=== PATIENT | female | born 1940 | race Caucasian/White ===

== ENCOUNTER → 2024-02-20 08:41 | Outpatient (REF) | payer OTHER, SELFPAY ==
[2024-02-20 09:36] LABS: % Basophils 0.7 % (0-2); % Immature Granulocytes 0.3 % (0-0.5); % Lymphocytes 22.1 % (20.5-51.1); % Monocytes 16.8 % (1.7-9.3); % Neutrophils 57.1 % (42.2-75.2); Absolute Eosinophils 0.1 10^3/uL (0-0.7); Absolute Lymphocytes 0.7 10^3/uL (1.2-3.4); Absolute Monocytes 0.5 10^3/uL (0.1-0.6); Absolute Neutrophils 1.7 10^3/uL (1.4-6.5); Hematocrit 31.8 % (37.0-47.0); Hemoglobin 10.4 g/dL (12.0-16.0); Mean Corp Hgb Conc. 32.7 g/dL (33.0-37.0); Mean Corpuscular Hgb 29.5 pg (27.0-31.0); Mean Corpuscular Volume 90.3 fL (81.0-99.0); Mean Platelet Volume 10.9 fL (7.4-10.4); Nucleated Red Blood Cells % 0 %; Platelet Count 121 10^3/uL (130-400); Red Blood Cell Count 3.52 10^6/uL (4.20-5.40); Red Cell Dist. Width 16.1 % (11.5-14.5)
[2024-02-20 10:03] LABS: ALT (SGPT) 20 U/L (0-35); AST (SGOT) 36 U/L (14-36); Albumin 3.1 g/dl (3.5-5.0); Alkaline Phosphatase 130 U/L (38-126); Blood Urea Nitrogen 20 mg/dl (7-17); Carbon Dioxide 27 mmol/L (22-30); Chloride 107 mmol/L (98-107); Glucose 121 mg/dl (70-99); HDL Cholesterol 57 mg/dl; LDL Cholesterol, Calculated 60 mg/dl; Sodium 137 mmol/L (135-145); Total Bilirubin 1.9 mg/dl (0.2-1.3); Total Cholesterol 131 mg/dl (50-199); Total Protein 7.1 g/dl (6.3-8.2); Triglyceride 74 mg/dl (10-149); Very Low Density Lipoprotein 14 mg/dl (0-30); eGFR > 60.00
[2024-02-20 10:10] LABS: Glycohemoglobin (HgbA1c) 7.4 % (4.0-5.6)
[2024-02-20 10:31] LABS: TSH Reflex To Free T4 3.23 uIU/ml (0.47-4.68)
== END ==
LOC: REG 08:41
PROVIDERS: ATTENDING PHYSICIAN Nurse Practitioner Family
DX: E11.69 Type 2 diabetes mellitus with other specified complication (principal); I85.00 Esophageal varices without bleeding; K76.6 Portal hypertension; K76.0 Fatty (change of) liver, not elsewhere classified; I86.4 Gastric varices; I10 Essential (primary) hypertension; H35.373 Puckering of macula, bilateral; H35.363 Drusen (degenerative) of macula, bilateral; H26.493 Other secondary cataract, bilateral; E78.2 Mixed hyperlipidemia; E66.09 Other obesity due to excess calories; Z68.34 Body mass index [BMI] 34.0-34.9, adult; I70.0 Atherosclerosis of aorta; L03.115 Cellulitis of right lower limb; S72.114S Nondisplaced fracture of greater trochanter of right femur, sequela; K21.9 Gastro-esophageal reflux disease without esophagitis; Z12.31 Encounter for screening mammogram for malignant neoplasm of breast; Z13.89 Encounter for screening for other disorder; R01.1 Cardiac murmur, unspecified; E66.9 Obesity, unspecified; Z99.89 Dependence on other enabling machines and devices; Z86.718 Personal history of other venous thrombosis and embolism; R60.0 Localized edema
CPT/HCPCS: 36415; 80053; 80061; 82306; 83036; 84443; 85025

== ENCOUNTER → 2024-06-11 16:35 | Outpatient (REF) | payer OTHER, SELFPAY | LOC: RAD 16:35 | PROVIDERS: ATTENDING PHYSICIAN Nurse Practitioner Family | DX: R60.0 Localized edema (principal) | CPT/HCPCS: 93970 ==

== ENCOUNTER → 2024-07-27 09:37 | Outpatient (REF) | payer OTHER, SELFPAY ==
[2024-07-27 10:41] LABS: % Basophils 0.6 % (0-2); % Eosinophils 3.1 % (0-6); % Immature Granulocytes 0.3 % (0-0.5); % Lymphocytes 14.6 % (20.5-51.1); % Monocytes 16.7 % (1.7-9.3); % Neutrophils 64.7 % (42.2-75.2); Absolute Eosinophils 0.1 10^3/uL (0-0.7); Absolute Lymphocytes 0.5 10^3/uL (1.2-3.4); Absolute Monocytes 0.5 10^3/uL (0.1-0.6); Absolute Neutrophils 2.1 10^3/uL (1.4-6.5); Hematocrit 28.8 % (37.0-47.0); Hemoglobin 9.6 g/dL (12.0-16.0); Mean Corp Hgb Conc. 33.3 g/dL (33.0-37.0); Mean Corpuscular Hgb 29.3 pg (27.0-31.0); Mean Corpuscular Volume 87.8 fL (81.0-99.0); Mean Platelet Volume 10.4 fL (7.4-10.4); Nucleated Red Blood Cells % 0 %; Platelet Count 92 10^3/uL (130-400); Red Blood Cell Count 3.28 10^6/uL (4.20-5.40); Red Cell Dist. Width 16.8 % (11.5-14.5); White Blood Cell Count 3.2 10^3/uL (4.8-10.8)
[2024-07-27 11:08] LABS: ALT (SGPT) 18 U/L (0-35); AST (SGOT) 33 U/L (14-36); Albumin 3.1 g/dl (3.5-5.0); Alkaline Phosphatase 113 U/L (38-126); Blood Urea Nitrogen 20 mg/dl (7-17); Calcium 8.6 mg/dl (8.4-10.2); Carbon Dioxide 26 mmol/L (22-30); Chloride 106 mmol/L (98-107); Glucose 121 mg/dl (70-99); Iron 60 ug/dl (37-170); Potassium 4.1 mmol/L (3.5-5.1); Sodium 139 mmol/L (135-145); Total Protein 6.9 g/dl (6.3-8.2); eGFR > 60.00
[2024-07-27 11:18] LABS: Percent Saturation 18 % (20-50); Total Iron Binding Capacity 324 ug/dl (265-497)
[2024-07-27 11:43] LABS: Ferritin 57.6 ng/ml (11.1-264.0)
[2024-07-27 11:57] LABS: Vitamin B12 890 pg/ml (239-931)
[2024-07-27 12:23] LABS: Glycohemoglobin (HgbA1c) 6.2 % (4.0-5.6)
[2024-07-27 16:00] LABS: Microalbumin, Random Urine > 57.0 mg/dl (0.6-1.7); Microalbumin/creatinine Ratio 350.6 mg/g
== END ==
LOC: REG 09:37
PROVIDERS: ATTENDING PHYSICIAN Internal Medicine
DX: E11.69 Type 2 diabetes mellitus with other specified complication (principal); D61.818 Other pancytopenia; I10 Essential (primary) hypertension; E78.2 Mixed hyperlipidemia; I85.00 Esophageal varices without bleeding; K76.0 Fatty (change of) liver, not elsewhere classified; D50.0 Iron deficiency anemia secondary to blood loss (chronic); I86.4 Gastric varices; K21.9 Gastro-esophageal reflux disease without esophagitis; E66.09 Other obesity due to excess calories; Z68.34 Body mass index [BMI] 34.0-34.9, adult; R01.1 Cardiac murmur, unspecified; Z99.89 Dependence on other enabling machines and devices; R60.0 Localized edema
CPT/HCPCS: 36415; 80053; 82043; 82570; 82607; 82728; 83036; 83540; 83550; 85025

== ENCOUNTER → 2024-08-21 08:44 | Outpatient (REF) | payer OTHER, SELFPAY | LOC: HWRAD 08:44 | PROVIDERS: ATTENDING PHYSICIAN Internal Medicine Gastroenterology; FAMILY PHYSICIAN Nurse Practitioner Primary Care | DX: K74.60 Unspecified cirrhosis of liver (principal) | CPT/HCPCS: 76700 ==

== ENCOUNTER → 2024-11-12 10:07 | Outpatient (REF) | payer OTHER, SELFPAY ==
[2024-11-12 11:10] LABS: % Basophils 0.6 % (0-2); % Eosinophils 3.9 % (0-6); % Immature Granulocytes 0.3 % (0-0.5); % Lymphocytes 19.3 % (20.5-51.1); % Monocytes 14.5 % (1.7-9.3); % Neutrophils 61.4 % (42.2-75.2); Absolute Eosinophils 0.1 10^3/uL (0-0.7); Absolute Lymphocytes 0.6 10^3/uL (1.2-3.4); Absolute Monocytes 0.5 10^3/uL (0.1-0.6); Absolute Neutrophils 1.9 10^3/uL (1.4-6.5); Hemoglobin 10.3 g/dL (12.0-16.0); Mean Corp Hgb Conc. 32.2 g/dL (33.0-37.0); Mean Corpuscular Hgb 28.7 pg (27.0-31.0); Mean Corpuscular Volume 89.1 fL (81.0-99.0); Mean Platelet Volume 11.1 fL (7.4-10.4); Nucleated Red Blood Cells % 0 %; Platelet Count 119 10^3/uL (130-400); Red Blood Cell Count 3.59 10^6/uL (4.20-5.40); Red Cell Dist. Width 16.1 % (11.5-14.5); White Blood Cell Count 3.1 10^3/uL (4.8-10.8)
[2024-11-12 11:46] LABS: ALT (SGPT) 27 U/L (0-35); AST (SGOT) 40 U/L (14-36); Albumin 2.9 g/dl (3.5-5.0); Alkaline Phosphatase 157 U/L (38-126); Blood Urea Nitrogen 18 mg/dl (7-17); Calcium 8.5 mg/dl (8.4-10.2); Carbon Dioxide 29 mmol/L (22-30); Chloride 107 mmol/L (98-107); Glucose 125 mg/dl (70-99); Sodium 141 mmol/L (135-145); Total Bilirubin 2.1 mg/dl (0.2-1.3); Uric Acid 5.3 mg/dl (2.5-6.2); eGFR > 60.00
[2024-11-12 12:33] LABS: Glycohemoglobin (HgbA1c) 6.8 % (4.0-5.6)
[2024-11-12 20:06] LABS: Hepatitis B Surface Antibody Negative
== END ==
LOC: REG 10:07
PROVIDERS: ATTENDING PHYSICIAN Nurse Practitioner Primary Care
DX: E11.9 Type 2 diabetes mellitus without complications (principal); K75.81 Nonalcoholic steatohepatitis (NASH); Z87.39 Personal history of other diseases of the musculoskeletal system and connective tissue
CPT/HCPCS: 36415; 80053; 83036; 84550; 85025; 86706

== ENCOUNTER 2024-11-19 12:18 | Emergency (ER) | payer OTHER, SELFPAY ==
[2024-11-19 12:27] VITALS: BP 214/90
[2024-11-19 13:42] VITALS: BP 218/74
[2024-11-19 13:43] VITALS: BMI 28.5
[2024-11-19 14:00] VITALS: BP 212/75
--- NOTE | 2024-11-19 14:20 | ED.GENMED ---
History of Present Illness
General
Chief Complaint: Blood Pressure Problem
Time Seen by Provider: 11/19/24 13:43
History of Present Illness
History of Present Illness:
84-year-old female presents to the emergency department for evaluation of elevated blood pressure. Patient was seen by her PCP last week for a routine physical where she was noted to be markedly hypertensive. She was previously taking 3.125 mg of
carvedilol and this was recommended to be doubled, following up today for blood pressure recheck and was noted to have systolic blood pressure greater than 200. She feels well, denies headache, vision changes, chest pain, shortness of breath. Her
PCP wrote orders for clonidine as well as losartan to be started as an outpatient.
Past History
Past History
ED Past Medical History: HTN, NIDDM and Other (Esophageal varices. Chronic anemia. Chronic thrombocytopenia)
ED Past Surgical History: Orthopedic
Social History
Tobacco: Non-smoker
Alcohol: Occasional
Drug: None
Personal: Single
Living: alone
Employment: Retired
Family History
Family History: Other (Noncontributory)
Review of Systems
Review of Systems
Allergies reviewed?: Yes
All Other Systems: ROS reviewed and negative except as documented in HPI and ROS
Phy Exam
Physical Exam
Physical Exam:
GEN: Well appearing, NAD, WDWN
HEENT: Oral mucosa moist, no scleral icterus
Cardiac: Regular rate and rhythm, systolic murmur heard throughout the precordium
Lung: No respiratory distress, no tachypnea, lungs clear to auscultation bilaterally
MSK: No gross deformity or injuries
Skin: Good color, no pallor or jaundice, no rashes
Neuro: AO x3, moves all extremities freely
Psych: Calm, cooperative
Course
Vital Signs
Initial and Last Documented VS:
Initial Vital Signs
Temp Pulse Resp BP Pulse Ox
97.4 F 72 18 214/90 99
11/19/24 12:27 11/19/24 12:27 11/19/24 12:27 11/19/24 12:27 11/19/24 12:27
Last Documented Vital Signs
Temp Pulse Resp BP Pulse Ox
97.4 F 64 13 212/75 98
11/19/24 12:27 11/19/24 14:15 11/19/24 14:15 11/19/24 14:00 11/19/24 14:15
MDM/Problems Addressed
MDM/Problems Addressed:
Patient appears clinically well and has no complaints. No indication for labs for asymptomatic hypertension. She will be started on clonidine and losartan per PCP recommendations, her systolic murmur is reportedly lifelong and does not need any
further workup
*Critical Care Note
Total Time (30-74mins, 75-104mins- exclusive of procedures): Not Applicable
ED Attending Note
-
Portions of this chart may have been created with voice recognition software.� Occasional wrong word or��sound alike� substitutions may have occurred due to the inherent limitations of voice recognition software.
Discharge Plan
Departure
Patient Disposition: Home (Routine Discharge)
Date of Disposition: 11/19/24
Time of Disposition: 14:21
Patient with high blood pressure during this ER visit?: No
Discharge Problem:
Asymptomatic hypertension
Instructions: High Blood Pressure (DC)
Prescriptions:
No Action
allopurinol 100 mg tablet
100 mg PO HS
simvastatin 20 mg tablet
20 mg PO QPM
Janumet 50-1,000 mg tablet
1 tab PO BID@0800,1700
ferrous sulfate 325 mg (65 mg iron) Tablet
325 mg PO DAILY
furosemide 40 mg tablet
40 mg PO BID
sennosides [senna] 8.6 mg Tablet
8.6 mg PO DAILY PRN (Reason: constipation)
potassium chloride 10 mEq capsule, extended release
10 meq PO BID
acetaminophen 325 mg Tablet
650 mg PO Q6H PRN (Reason: mild pain/fever>101)
magnesium hydroxide [Milk of Magnesia] 400 mg/5 mL Suspension
30 ml PO DAILY PRN (Reason: constipation)
bisacodyl [Dulcolax (bisacodyl)] 10 mg Suppository
10 mg IA DAILY PRN (Reason: constipation)
cholecalciferol (vitamin D3) [Vitamin D3] 25 mcg (1,000 unit) Tablet
50 mcg PO DAILY
Referrals:
Nell Harris CRNP [Family Provider] -
Activity Restrictions/Additional Instructions:
Start the losartan and clonidine as prescribed by your primary doctor
Interventions
Interventions:
*Risk Screen - Suicide Last Done: 11/19/24 12:27
*General Assessment Last Done: 11/19/24 12:27
*Neglect/Abuse Screening Last Done: 11/19/24 12:27
*Nursing Disposition Last Done: 11/19/24 14:36
ED- Cardiac Assessment Last Done: 11/19/24 13:43
ED- Neurological Assessment Last Done: 11/19/24 13:43
ED- Pulmonary Assessment Last Done: 11/19/24 13:43
Discharge Date and Time
Discharge Date/Time: 11/19/24 14:37
Print Language: BURUNDIAN
== END 2024-11-19 14:37 | disposition home or self-care (01) ==
LOC: EMR 12:18
PROVIDERS: EMERGENCY PHYSICIAN Emergency Medicine; FAMILY PHYSICIAN Nurse Practitioner Primary Care
DX: I10 Essential (primary) hypertension (principal); E11.9 Type 2 diabetes mellitus without complications; Z79.899 Other long term (current) drug therapy
CPT/HCPCS: 99282

== ENCOUNTER → 2024-11-27 08:47 | Outpatient (REF) | payer OTHER, SELFPAY ==
[2024-11-27 11:21] LABS: Hematocrit 30.1 % (37.0-47.0); Hemoglobin 9.9 g/dL (12.0-16.0); Mean Corp Hgb Conc. 32.9 g/dL (33.0-37.0); Mean Corpuscular Hgb 29.2 pg (27.0-31.0); Mean Corpuscular Volume 88.8 fL (81.0-99.0); Red Blood Cell Count 3.39 10^6/uL (4.20-5.40); White Blood Cell Count 2.7 10^3/uL (4.8-10.8)
[2024-11-27 11:22] LABS: % Basophils 0.8 % (0-2); % Lymphocytes 17.7 % (20.5-51.1); % Monocytes 12.5 % (1.7-9.3); Absolute Eosinophils 0.1 10^3/uL (0-0.7); Absolute Lymphocytes 0.5 10^3/uL (1.2-3.4); Absolute Monocytes 0.3 10^3/uL (0.1-0.6); Absolute Neutrophils 1.8 10^3/uL (1.4-6.5); Nucleated Red Blood Cells % 0 %
[2024-11-27 11:26] LABS: INR 1.18; PT 15.5 Sec (11.4-14.6)
[2024-11-27 11:27] LABS: APTT 33.3 Sec (23.4-35.0)
[2024-11-27 11:54] LABS: ALT (SGPT) 20 U/L (0-35); AST (SGOT) 33 U/L (14-36); Albumin 2.8 g/dl (3.5-5.0); Alkaline Phosphatase 122 U/L (38-126); Blood Urea Nitrogen 23 mg/dl (7-17); Calcium 8.3 mg/dl (8.4-10.2); Carbon Dioxide 28 mmol/L (22-30); Chloride 107 mmol/L (98-107); Glucose 129 mg/dl (70-99); HDL Cholesterol 54 mg/dl; LDL Cholesterol, Calculated 83 mg/dl; Potassium 4.6 mmol/L (3.5-5.1); Sodium 138 mmol/L (135-145); Total Bilirubin 1.6 mg/dl (0.2-1.3); Total Cholesterol 148 mg/dl (50-199); Total Protein 6.7 g/dl (6.3-8.2); Triglyceride 58 mg/dl (10-149); Very Low Density Lipoprotein 11 mg/dl (0-30); eGFR > 60.00
[2024-11-27 12:14] LABS: Vitamin D, 25-OH*** 42.4 ng/mL (30-80)
[2024-11-27 12:23] LABS: Erythrocyte Sed Rate 46 mm/hour (0-20)
[2024-11-27 12:28] LABS: TSH Reflex To Free T4 3.08 uIU/ml (0.47-4.68)
[2024-11-27 12:30] LABS: Mean Platelet Volume 11.3 fL (7.4-10.4); Platelet Count 85 10^3/uL (130-400)
[2024-11-29 21:44] LABS: Albumin 2.53 g/dL (3.75-5.01); Alpha 1 Globulin 0.32 g/dL (0.19-0.46); Alpha 2 Globulin 0.51 g/dL (0.48-1.05); SPEP IFE Reflex Not Done; Total Protein-Electrophoresis 6.6 g/dL (6.3-8.2)
== END ==
LOC: REG 08:47
PROVIDERS: ATTENDING PHYSICIAN Nurse Practitioner Family; FAMILY PHYSICIAN Nurse Practitioner Primary Care
DX: I10 Essential (primary) hypertension (principal); D61.818 Other pancytopenia; E11.9 Type 2 diabetes mellitus without complications; K75.81 Nonalcoholic steatohepatitis (NASH); K74.69 Other cirrhosis of liver; E03.8 Other specified hypothyroidism; E55.9 Vitamin D deficiency, unspecified
CPT/HCPCS: 36415; 80053; 80061; 82306; 84155; 84165; 84443; 85025; 85610; 85652; 85730; 86140

== ENCOUNTER → 2024-11-30 13:14 | Outpatient (REF) | payer OTHER, SELFPAY | LOC: RAD 13:14 | PROVIDERS: ATTENDING PHYSICIAN Nurse Practitioner Primary Care; FAMILY PHYSICIAN Nurse Practitioner Family | DX: K75.81 Nonalcoholic steatohepatitis (NASH) (principal); K74.69 Other cirrhosis of liver; R19.05 Periumbilic swelling, mass or lump; I10 Essential (primary) hypertension | CPT/HCPCS: 74177; 93005; Q9967 ==

== ENCOUNTER → 2024-12-12 09:32 | Outpatient (REF) | payer OTHER, SELFPAY | LOC: HWWDC 09:32 | PROVIDERS: ATTENDING PHYSICIAN Nurse Practitioner Primary Care | DX: Z12.31 Encounter for screening mammogram for malignant neoplasm of breast (principal) | CPT/HCPCS: 77063; 77067 ==

== ENCOUNTER → 2024-12-18 07:13 | Outpatient (REF) | payer OTHER, SELFPAY ==
[2024-12-18 07:33] VITALS: BP 162/50; BP_SYST 53
[2024-12-18 08:08] VITALS: BP 162/54; BP_SYST 53
[2024-12-18 08:14] VITALS: BP 162/54; BP_SYST 53
[2024-12-18 08:35] VITALS: BP 162/54
[2024-12-18 09:14] LABS: Body Fluid Albumin < 1.0 g/dl; Body Fluid LDH < 90 U/L; Body Fluid Protein < 2.0 g/dl
[2024-12-18 09:48] LABS: Body Fluid WBC 301 /CUMM
[2024-12-18 10:01] LABS: Body Fluid Second Tech RP
== END ==
LOC: RADI 07:13
PROVIDERS: ATTENDING PHYSICIAN Internal Medicine Gastroenterology
DX: R18.8 Other ascites (principal)
CPT/HCPCS: 88305; 49083; 82042; 83615; 84157; 87015; 87070; 87205; 88112; 89051

== ENCOUNTER → 2024-12-25 16:35 | Outpatient (REF) | payer OTHER, SELFPAY ==
[2024-12-25 17:18] LABS: Blood Urea Nitrogen 37 mg/dl (7-17); Carbon Dioxide 28 mmol/L (22-30); Chloride 103 mmol/L (98-107); Glucose 210 mg/dl (70-99); Iron 88 ug/dl (37-170); Magnesium 1.7 mg/dl (1.6-2.3); Potassium 4.5 mmol/L (3.5-5.1); Sodium 137 mmol/L (135-145); eGFR > 60.00
[2024-12-25 17:26] LABS: Percent Saturation 25 % (20-50); Total Iron Binding Capacity 346 ug/dl (265-497)
[2024-12-25 17:51] LABS: Ferritin 66.5 ng/ml (11.1-264.0)
== END ==
LOC: REG 16:35
PROVIDERS: ATTENDING PHYSICIAN Internal Medicine Gastroenterology; FAMILY PHYSICIAN Nurse Practitioner Primary Care
DX: R18.8 Other ascites (principal); I10 Essential (primary) hypertension; D61.818 Other pancytopenia; D50.8 Other iron deficiency anemias
CPT/HCPCS: 36415; 80048; 82088; 82728; 83540; 83550; 83735; 84244

== ENCOUNTER 2025-01-03 08:01 | Day surgery (SDC) | payer OTHER, SELFPAY ==
[2025-01-03 08:13] VITALS: BMI 24.7
[2025-01-03 08:28] VITALS: BMI 24.7
[2025-01-03 08:47] VITALS: BP 156/50
[2025-01-03 09:02] LABS: Glucose - Point of Care 162 mg/dl (70-99)
[2025-01-03 12:02] VITALS: BP 130/56
[2025-01-03 12:15] VITALS: BP 140/53
[2025-01-03 12:32] VITALS: BP 155/60
== END 2025-01-03 13:10 | disposition home or self-care (01) ==
LOC: GI 08:01
PROVIDERS: ATTENDING PHYSICIAN Internal Medicine Gastroenterology
DX: R93.3 Abnormal findings on diagnostic imaging of other parts of digestive tract (principal); K64.1 Second degree hemorrhoids; K55.20 Angiodysplasia of colon without hemorrhage; K63.5 Polyp of colon; K57.30 Diverticulosis of large intestine without perforation or abscess without bleeding
CPT/HCPCS: 45385; 45381; 45380; 45382; 88305; 82962

== ENCOUNTER → 2025-01-16 09:32 | Outpatient (REF) | payer OTHER, SELFPAY ==
[2025-01-16 10:53] LABS: % Basophils 0.6 % (0-2); % Eosinophils 3.9 % (0-6); % Immature Granulocytes 0.3 % (0-0.5); % Lymphocytes 17.7 % (20.5-51.1); % Monocytes 12.3 % (1.7-9.3); % Neutrophils 65.2 % (42.2-75.2); Absolute Eosinophils 0.1 10^3/uL (0-0.7); Absolute Lymphocytes 0.6 10^3/uL (1.2-3.4); Absolute Monocytes 0.4 10^3/uL (0.1-0.6); Absolute Neutrophils 2.2 10^3/uL (1.4-6.5); Hematocrit 32.9 % (37.0-47.0); Hemoglobin 11.1 g/dL (12.0-16.0); Mean Corp Hgb Conc. 33.7 g/dL (33.0-37.0); Mean Corpuscular Volume 88.9 fL (81.0-99.0); Nucleated Red Blood Cells % 0 %; Red Cell Dist. Width 17.5 % (11.5-14.5); White Blood Cell Count 3.3 10^3/uL (4.8-10.8)
[2025-01-16 11:45] LABS: ALT (SGPT) 20 U/L (0-35); AST (SGOT) 25 U/L (14-36); Albumin 3.9 g/dl (3.5-5.0); Alkaline Phosphatase 91 U/L (38-126); Blood Urea Nitrogen 55 mg/dl (7-17); Calcium 9.4 mg/dl (8.4-10.2); Carbon Dioxide 20 mmol/L (22-30); Chloride 110 mmol/L (98-107); Glucose 124 mg/dl (70-99); Potassium 5.3 mmol/L (3.5-5.1); Sodium 140 mmol/L (135-145); Total Bilirubin 1.5 mg/dl (0.2-1.3); Total Protein 8.2 g/dl (6.3-8.2)
[2025-01-16 11:59] LABS: Mean Platelet Volume 11.2 fL (7.4-10.4)
[2025-01-16 12:00] LABS: Acanthocytes 1+; Anisocytosis 1+; Hypochromasia 1+; Normal RBC Morphology No; Ovalocytes 1+; Platelet Count 67 10^3/uL (130-400); Polychromasia 1+
== END ==
LOC: REG 09:32
PROVIDERS: ATTENDING PHYSICIAN Nurse Practitioner Primary Care
DX: I10 Essential (primary) hypertension (principal); E11.9 Type 2 diabetes mellitus without complications
CPT/HCPCS: 36415; 80053; 85025

== ENCOUNTER → 2025-01-31 12:08 | Outpatient (REF) | payer OTHER, SELFPAY ==
[2025-01-31 14:01] LABS: Blood Urea Nitrogen 60 mg/dl (7-17); Calcium 9.6 mg/dl (8.4-10.2); Carbon Dioxide 19 mmol/L (22-30); Chloride 105 mmol/L (98-107); Glucose 256 mg/dl (70-99); Potassium 5.7 mmol/L (3.5-5.1); Sodium 135 mmol/L (135-145); eGFR 36.87
== END ==
LOC: REG 12:08
PROVIDERS: ATTENDING PHYSICIAN Nurse Practitioner Primary Care
DX: E87.5 Hyperkalemia (principal)
CPT/HCPCS: 36415; 80048

== ENCOUNTER → 2025-02-01 14:20 | Outpatient (REF) | payer OTHER, SELFPAY | LOC: HWRAD 14:20 | PROVIDERS: ATTENDING PHYSICIAN Nurse Practitioner Primary Care | DX: K74.69 Other cirrhosis of liver (principal); I81 Portal vein thrombosis; R19.06 Epigastric swelling, mass or lump | CPT/HCPCS: 76700; 93975 ==

== ENCOUNTER → 2025-02-04 14:16 | Outpatient (REF) | payer OTHER, SELFPAY ==
[2025-02-04 15:09] LABS: Blood Urea Nitrogen 53 mg/dl (7-17); Calcium 9.3 mg/dl (8.4-10.2); Carbon Dioxide 19 mmol/L (22-30); Chloride 106 mmol/L (98-107); Glucose 305 mg/dl (70-99); Potassium 5.5 mmol/L (3.5-5.1); Sodium 135 mmol/L (135-145); eGFR 44.36
== END ==
LOC: REG 14:16
PROVIDERS: ATTENDING PHYSICIAN Nurse Practitioner Primary Care
DX: R74.8 Abnormal levels of other serum enzymes (principal)
CPT/HCPCS: 36415; 80048

== ENCOUNTER 2025-02-06 06:17 | Day surgery (SDC) | payer OTHER, SELFPAY ==
[2025-02-06 10:35] LABS: Glucose - Point of Care 111 mg/dl (70-99)
[2025-02-06 10:36] VITALS: BP 165/49
[2025-02-06 10:38] VITALS: BMI 24.4
[2025-02-06 10:39] VITALS: BMI 24.4
[2025-02-06 11:54] VITALS: BP 129/53
[2025-02-06 12:00] VITALS: BP 122/53
[2025-02-06 12:16] VITALS: BP 145/52
== END 2025-02-06 12:51 | disposition home or self-care (01) ==
LOC: SDS 06:17
PROVIDERS: ATTENDING PHYSICIAN Internal Medicine Gastroenterology
DX: I85.00 Esophageal varices without bleeding (principal); K76.6 Portal hypertension; K26.9 Duodenal ulcer, unspecified as acute or chronic, without hemorrhage or perforation; K31.89 Other diseases of stomach and duodenum
CPT/HCPCS: 43235; 82962

== ENCOUNTER → 2025-02-08 15:10 | Outpatient (REF) | payer OTHER, SELFPAY ==
[2025-02-11 03:12] LABS: H. pylori Breath Test Negative (Negative)
== END ==
LOC: REG 15:10
PROVIDERS: ATTENDING PHYSICIAN Internal Medicine Gastroenterology; FAMILY PHYSICIAN Nurse Practitioner Primary Care
DX: K26.9 Duodenal ulcer, unspecified as acute or chronic, without hemorrhage or perforation (principal)
CPT/HCPCS: 36415; 83013

== ENCOUNTER → 2025-02-12 12:37 | Outpatient (REF) | payer OTHER, SELFPAY | LOC: HWRCS 12:37 | PROVIDERS: ATTENDING PHYSICIAN Nurse Practitioner Primary Care | DX: I35.0 Nonrheumatic aortic (valve) stenosis (principal); R19.06 Epigastric swelling, mass or lump | CPT/HCPCS: 93306 ==

== ENCOUNTER → 2025-02-13 12:26 | Outpatient (REF) | payer OTHER, SELFPAY ==
[2025-02-13 14:21] LABS: ALT (SGPT) 20 U/L (0-35); AST (SGOT) 26 U/L (14-36); Albumin 3.1 g/dl (3.5-5.0); Alkaline Phosphatase 79 U/L (38-126); Blood Urea Nitrogen 46 mg/dl (7-17); Calcium 8.8 mg/dl (8.4-10.2); Carbon Dioxide 19 mmol/L (22-30); Chloride 109 mmol/L (98-107); Glucose 250 mg/dl (70-99); Potassium 5.4 mmol/L (3.5-5.1); Sodium 135 mmol/L (135-145); Total Bilirubin 1.4 mg/dl (0.2-1.3); Total Protein 6.9 g/dl (6.3-8.2); eGFR 44.36
[2025-02-13 14:53] LABS: Glycohemoglobin (HgbA1c) 7.5 % (4.0-5.6)
[2025-02-13 16:28] LABS: Urine Albumin 2+ (Neg - Trace); Urine Bilirubin Negative (Negative); Urine Character Clear (Clear); Urine Color Yellow; Urine Glucose Negative (Negative); Urine Ketone Negative (Negative); Urine Leukocyte 3+ (Negative); Urine Nitrite Negative (Negative); Urine Occult Blood 3+ (Negative); Urine Urobilinogen Negative (Neg - 1+)
[2025-02-13 16:40] LABS: Urine Bacteria Many (Negative); Urine Red Blood Cell 0-2 /HPF (0-2); Urine White Cell 26-30 /HPF (0-5)
[2025-02-13 16:52] LABS: Microalbumin, Random Urine 13.3 mg/dl (0.6-1.7); Microalbumin/creatinine Ratio 129.8 mg/g
== END ==
LOC: REG 12:26
PROVIDERS: ATTENDING PHYSICIAN Nurse Practitioner Primary Care
DX: I10 Essential (primary) hypertension (principal); E11.9 Type 2 diabetes mellitus without complications
CPT/HCPCS: 36415; 80053; 81003; 81015; 82043; 82570; 83036

== ENCOUNTER → 2025-02-21 14:45 | Outpatient (REF) | payer OTHER, SELFPAY ==
[2025-02-21 15:42] LABS: Blood Urea Nitrogen 52 mg/dl (7-17); Calcium 9.2 mg/dl (8.4-10.2); Carbon Dioxide 21 mmol/L (22-30); Chloride 112 mmol/L (98-107); Glucose 247 mg/dl (70-99); Sodium 143 mmol/L (135-145); eGFR 44.36
== END ==
LOC: REG 14:45
PROVIDERS: ATTENDING PHYSICIAN Nurse Practitioner Primary Care
DX: I10 Essential (primary) hypertension (principal)
CPT/HCPCS: 36415; 80048

== ENCOUNTER 2025-03-08 10:43 | Emergency (ER) | payer OTHER, SELFPAY ==
[2025-03-08] VITALS (11 sets, daily range): BP systolic 60–173; BP diastolic 51–117
--- NOTE | 2025-03-08 12:21 | ED.GENMED ---
History of Present Illness
General
Chief Complaint: Weight Changes
Source: patient
Exam Limitations: none
Time Seen by Provider: 03/08/25 12:00
History of Present Illness
History of Present Illness:
84-year-old female with history of portal vein thrombosis esophageal varices and cirrhosis presents with abdominal distention and tightness. She states she gained 20 pounds overnight. She also notes leg swelling. She has been here in the past.
She has required paracentesis in the past. She denies fever. She denies shortness of breath. She also notes she is diffusely itchy
Past History
Past History
ED Past Medical History: HTN, NIDDM and Other (Esophageal varices. Chronic anemia. Chronic thrombocytopenia)
ED Past Surgical History: Orthopedic
Social History
Tobacco: Non-smoker
Alcohol: Occasional
Drug: None
Personal: Single
Living: alone
Employment: Retired
Family History
Family History: Other (Noncontributory)
Phy Exam
Physical Exam
Physical Exam:
General: Well-appearing female no acute respiratory distress
HEENT normocephalic atraumatic
Heart: Regular rate and rhythm holosystolic murmur noted
Lungs: Clear no wheeze
Abdomen distended slightly firm no guarding or rebound nontender
Extremities significant pitting edema bilateral lower extremities
Skin is warm no rash
Scores
Heart Failure Risk
Heart Failure Risk Score: Not Applicable
Course
Orders/Labs/Results
Orders:
Orders
03/08/25 12:08
Diphenhydramine [Benadryl] 25 mg IV NOW STA
03/08/25 12:18
Consult Interventional Radiology [IRAD CONSULT] Urgent
Consulting Provider: Ajit Fitzpatrick
Was physician already notified: Yes
Reason for Consult/Procedure: ascites
Acknowledgement that appropriate orders are entered: Yes
03/08/25 12:25
Complete Blood Count/With Diff Urgent
Comprehensive Metabolic Panel Urgent
PTT Urgent
Prothrombin Time Urgent
03/08/25 14:20
Body Fluid Cell Count Routine
What is the Body Fluid: peritoneal
Date Specimen was Collected: 03/08/25
Time Specimen was Collected: 14:18
Fluid Culture with Gram Stain Routine
EMILIA Source: Peritoneal Fluid
Specimen Description:
Date Specimen was Collected: 03/08/25
Time Specimen was Collected: 14:18
Abnormal Lab Results
03/08/25
12:25
WBC 4.0 L 10^3/uL
(4.8-10.8)
RBC 3.09 L 10^6/uL
(4.20-5.40)
Hgb 9.6 L g/dL
(12.0-16.0)
Hct 28.4 L %
(37.0-47.0)
MCH 31.1 H pg
(27.0-31.0)
RDW 18.9 H %
(11.5-14.5)
Plt Count 109 L 10^3/uL
(130-400)
MPV 11.1 H fL
(7.4-10.4)
Absolute Lymphs (auto) 0.6 L 10^3/uL
(1.2-3.4)
Lymphocytes % 15.3 L %
(20.5-51.1)
Monocytes % 14.8 H %
(1.7-9.3)
Eosinophils % 6.5 H %
(0-6)
PT 16.2 H Sec
(11.4-14.6)
Chloride 112 H mmol/L
(98-107)
Carbon Dioxide 19 L mmol/L
(22-30)
BUN 33 H mg/dl
(7-17)
Glucose 153 H mg/dl
(70-99)
Total Bilirubin 1.8 H mg/dl
(0.2-1.3)
Alkaline Phosphatase 127 H U/L
(38-126)
03/08/25 12:25
03/08/25 12:25
Vital Signs
Initial and Last Documented VS:
Initial Vital Signs
Temp Pulse Resp BP Pulse Ox
97.5 F 76 18 173/81 96
03/08/25 10:49 03/08/25 10:49 03/08/25 10:49 03/08/25 10:49 03/08/25 10:49
Last Documented Vital Signs
Temp Pulse Resp BP Pulse Ox
98.5 F 76 14 162/62 98
03/08/25 15:23 03/08/25 15:23 03/08/25 15:23 03/08/25 15:23 03/08/25 15:23
MDM/Problems Addressed
Differential Diagnosis Includes:
Weight gain overnight with abdominal distention and leg edema. History of cirrhosis, portal vein thrombosis and esophageal varices. Not anticoagulated. No significant respiratory distress but given significant distention on exam consulted
interventional radiology for paracentesis. Labs pending
*Critical Care Note
Total Time (30-74mins, 75-104mins- exclusive of procedures): Not Applicable
Update Note
Update Note:
Patient was able to be seen by interventional radiology as and had a paracentesis. Symptomatically she feels better on exam her abdomen is soft and nontender. No respiratory distress. No acute finding noted in workup otherwise. Stable for
discharge
ED Attending Note
-
Portions of this chart may have been created with voice recognition software.� Occasional wrong word or��sound alike� substitutions may have occurred due to the inherent limitations of voice recognition software.
Discharge Plan
Departure
Patient Disposition: Home (Routine Discharge)
Date of Disposition: 03/08/25
Time of Disposition: 15:29
Patient with high blood pressure during this ER visit?: No
Discharge Problem:
Ascites
Prescriptions:
No Action
allopurinol 100 mg tablet
100 mg PO HS
simvastatin 20 mg tablet
20 mg PO QPM
ferrous sulfate 325 mg (65 mg iron) Tablet
325 mg PO DAILY
potassium chloride 10 mEq capsule, extended release
10 meq PO BID
acetaminophen 325 mg Tablet
650 mg PO Q6H PRN (Reason: mild pain/fever>101)
multivitamin Tablet
1 tab PO DAILY
carvedilol 3.125 mg Tablet
3.125 mg PO DAILY
cranberry 450 mg Tablet
405 mg PO DAILY
clonidine HCl 0.1 mg Tablet
0.1 mg PO HS PRN (Reason: high blood pressure)
triamcinolone acetonide 0.1 % Cream
1 applic TOPICAL WEEKLY
zinc 50 mg Tablet
50 mg PO DAILY
pioglitazone 30 mg Tablet
30 mg PO DAILY
[place] 3 Capsule
1,000 mg PO DAILY
cholecalciferol (vitamin D3) [Vitamin D3] 25 mcg (1,000 unit) Tablet
25 mcg PO DAILY
amlodipine 5 mg Tablet
2.5 mg PO DAILY
furosemide 40 mg Tablet
40 mg PO DAILY
spironolactone 100 mg Tablet
25 mg PO DAILY
Referrals:
Nell Harris CRNP [Family Provider] -
Activity Restrictions/Additional Instructions:
Continue to follow-up with your GI team. Return here if needed otherwise
Interventions
Interventions:
*Risk Screen - Suicide Last Done: 03/08/25 10:49
*General Assessment Last Done: 03/08/25 10:49
*Neglect/Abuse Screening Last Done: 03/08/25 10:53
*ED- Fall Risk Assessment Last Done: 03/08/25 15:23
*ED COVID-19 Vaccine History Last Done: 03/08/25 10:49
Discharge Date and Time
Print Language: BENGALI
[2025-03-08] MEDS: BENADRYL 25 MG IV (12:32)
[2025-03-08 12:37] LABS: % Eosinophils 6.5 % (0-6); % Immature Granulocytes 0.5 % (0-0.5); % Lymphocytes 15.3 % (20.5-51.1); % Monocytes 14.8 % (1.7-9.3); % Neutrophils 61.9 % (42.2-75.2); Absolute Eosinophils 0.3 10^3/uL (0-0.7); Absolute Lymphocytes 0.6 10^3/uL (1.2-3.4); Absolute Monocytes 0.6 10^3/uL (0.1-0.6); Absolute Neutrophils 2.5 10^3/uL (1.4-6.5); Hematocrit 28.4 % (37.0-47.0); Hemoglobin 9.6 g/dL (12.0-16.0); Mean Corp Hgb Conc. 33.8 g/dL (33.0-37.0); Mean Corpuscular Hgb 31.1 pg (27.0-31.0); Mean Corpuscular Volume 91.9 fL (81.0-99.0); Mean Platelet Volume 11.1 fL (7.4-10.4); Nucleated Red Blood Cells % 0 %; Platelet Count 109 10^3/uL (130-400); Red Blood Cell Count 3.09 10^6/uL (4.20-5.40); Red Cell Dist. Width 18.9 % (11.5-14.5)
[2025-03-08 12:43] LABS: INR 1.27; PT 16.2 Sec (11.4-14.6)
[2025-03-08 12:44] LABS: APTT 32.2 Sec (23.4-35.0)
[2025-03-08 13:04] LABS: ALT (SGPT) 27 U/L (0-35); AST (SGOT) 36 U/L (14-36); Albumin 3.5 g/dl (3.5-5.0); Alkaline Phosphatase 127 U/L (38-126); Blood Urea Nitrogen 33 mg/dl (7-17); Carbon Dioxide 19 mmol/L (22-30); Chloride 112 mmol/L (98-107); Glucose 153 mg/dl (70-99); Potassium 4.6 mmol/L (3.5-5.1); Sodium 142 mmol/L (135-145); Total Bilirubin 1.8 mg/dl (0.2-1.3); Total Protein 7.4 g/dl (6.3-8.2); eGFR > 60.00
[2025-03-08 14:46] LABS: Body Fluid Mononuclear 93.8 %; Body Fluid Polymorphonuclear 6.2 %; Body Fluid WBC 112 /CUMM
[2025-03-08 14:47] LABS: Body Fluid Second Tech EM
== END 2025-03-08 17:15 | disposition home or self-care (01) ==
LOC: EMR 10:43
PROVIDERS: Physician Assistant; CONSULT PHYSICIAN Radiology Vascular & Interventional Radiology; EMERGENCY PHYSICIAN Emergency Medicine; FAMILY PHYSICIAN Nurse Practitioner Primary Care
DX: R18.8 Other ascites (principal); Z86.718 Personal history of other venous thrombosis and embolism; K74.60 Unspecified cirrhosis of liver
CPT/HCPCS: 99284; 96374; 49083; 80053; 85025; 85610; 85730; 87015; 87070; 87205; 89051

== ENCOUNTER 2025-03-12 23:02 | Inpatient (IN) | payer OTHER, SELFPAY ==
[2025-03-12 19:37] VITALS: BP 189/60
[2025-03-12 19:38] VITALS: BP 189/60
[2025-03-12 19:52] VITALS: BMI 30.2
[2025-03-12 20:00] LABS: % Basophils 0.8 % (0-2); % Eosinophils 5.5 % (0-6); % Immature Granulocytes 0.6 % (0-0.5); % Lymphocytes 14.1 % (20.5-51.1); % Monocytes 14.8 % (1.7-9.3); % Neutrophils 64.2 % (42.2-75.2); Absolute Eosinophils 0.3 10^3/uL (0-0.7); Absolute Lymphocytes 0.7 10^3/uL (1.2-3.4); Absolute Monocytes 0.7 10^3/uL (0.1-0.6); Absolute Neutrophils 3.1 10^3/uL (1.4-6.5); Hematocrit 28.5 % (37.0-47.0); Hemoglobin 9.5 g/dL (12.0-16.0); Mean Corp Hgb Conc. 33.3 g/dL (33.0-37.0); Mean Corpuscular Hgb 30.4 pg (27.0-31.0); Mean Corpuscular Volume 91.3 fL (81.0-99.0); Mean Platelet Volume 10.2 fL (7.4-10.4); Nucleated Red Blood Cells % 0 %; Platelet Count 115 10^3/uL (130-400); Red Blood Cell Count 3.12 10^6/uL (4.20-5.40); Red Cell Dist. Width 18.5 % (11.5-14.5); White Blood Cell Count 4.9 10^3/uL (4.8-10.8)
[2025-03-12 20:01] VITALS: BP 173/57
[2025-03-12 20:02] LABS: INR 1.34; PT 16.8 Sec (11.4-14.6)
[2025-03-12 20:03] LABS: APTT 32.9 Sec (23.4-35.0)
--- NOTE | 2025-03-12 20:04 | ED.GENMED ---
History of Present Illness
General
Chief Complaint: Rectal Bleeding
Time Seen by Provider: 03/12/25 19:47
History of Present Illness
History of Present Illness:
Patient is a 84-year-old woman with history of esophageal and gastric varices, cirrhosis presenting to the emergency department rectal bleeding. Patient has had her prior esophageal varices banded. She currently still has some varices that they
are just watching. She also has some gastric varices. She had a colonoscopy few months ago which showed some polyp. Patient states that today she went to the bathroom. She got up and noticed that there was significant amount of blood in the
toilet. She then called her daughter who is a doctor. She brought her in for further evaluation. Patient states that she has soaked 2 pads of bright red blood since then. The bleeding has slowed down so she came here. No clots. No
lightheadedness dizziness. No abdominal pain. No diarrhea.
Past History
Past History
ED Past Medical History: HTN, NIDDM and Other (Esophageal varices. Chronic anemia. Chronic thrombocytopenia)
ED Past Surgical History: Orthopedic
Social History
Tobacco: Non-smoker
Alcohol: Occasional
Drug: None
Personal: Single
Living: alone
Employment: Retired
Family History
Family History: Other (Noncontributory)
Phy Exam
Physical Exam
Physical Exam:
GENERAL: in no acute distress
HEENT: normocephalic, extraocular movements intact, moist oral mucosa
NECK: normal inspection
RESPIRATORY: no respiratory distress, clear to auscultation bilaterally
CARDIOVASCULAR: regular rate and rhythm
ABDOMEN/: soft, non-distended, non-tender to palpation, no rebound or guarding
Rectum: Chaperoned by JUAQUIN Pérez, dried blood on check, external hemorrhoids, no gross hemorrhage, small amount of stool in rectal vault was Hemoccult positive
EXTREMITIES: non-tender, no edema/swelling
NEUROLOGIC: awake and alert, moves all extremities
SKIN: warm
Course
Orders/Labs/Results
Orders:
Orders
03/12/25 19:44
Type+Screen Urgent
Complete Blood Count/With Diff Urgent
Comprehensive Metabolic Panel Urgent
PTT Urgent
Prothrombin Time Urgent
03/12/25 20:09
CT Abd/pelvis Angio W/wo Iv Urgent
Comment:
Reason For Exam: lower gi bleed
Abnormal Lab Results
03/12/25
19:44
RBC 3.12 L 10^6/uL
(4.20-5.40)
Hgb 9.5 L g/dL
(12.0-16.0)
Hct 28.5 L %
(37.0-47.0)
RDW 18.5 H %
(11.5-14.5)
Plt Count 115 L 10^3/uL
(130-400)
Absolute Lymphs (auto) 0.7 L 10^3/uL
(1.2-3.4)
Absolute Monos (auto) 0.7 H 10^3/uL
(0.1-0.6)
Immature Gran % 0.6 H %
(0-0.5)
Lymphocytes % 14.1 L %
(20.5-51.1)
Monocytes % 14.8 H %
(1.7-9.3)
PT 16.8 H Sec
(11.4-14.6)
Chloride 110 H mmol/L
(98-107)
Carbon Dioxide 19 L mmol/L
(22-30)
BUN 34 H mg/dl
(7-17)
Glucose 196 H mg/dl
(70-99)
Total Bilirubin 1.7 H mg/dl
(0.2-1.3)
Alkaline Phosphatase 132 H U/L
(38-126)
03/12/25 19:44
04/15/25 19:44
Vital Signs
Initial and Last Documented VS:
Initial Vital Signs
BP
189/60
03/12/25 19:37
Last Documented Vital Signs
Temp Pulse Resp BP Pulse Ox
98.7 F 78 16 166/70 97
03/12/25 19:38 03/12/25 21:15 03/12/25 21:15 03/12/25 21:13 03/12/25 21:15
MDM/Problems Addressed
Differential Diagnosis Includes:
Patient is a 84-year-old woman with history of prior esophageal varices gastric varices cirrhosis presenting to the emergency department with bright red blood per rectum. On arrival patient was actually hypertensive. Exam did show dried blood on
the donell but no gross obvious bleeding from the rectum. Concern for lower GI bleed. Considered brisk upper GI bleed given patient's varices however patient has no abdominal pain no history of melena and no hematemesis. History exam not
consistent with mesenteric ischemia. Will check blood work. I considered obtaining a CTA given the amount of bleeding the patient was describing however it has resolved so we will hold off on any additional imaging at this time. Patient advised
to notify us if the bleeding reoccurs as we will proceed with imaging at that time.
*Critical Care Note
Total Time (30-74mins, 75-104mins- exclusive of procedures): Not Applicable
Update Note
Update Note:
Hemoglobin 9.5 which is similar to a few days ago. Nursing notified as patient with bright red bleeding. Will proceed with CT angio.
CT scan per my interpretation with no active bleeding but there is significant amount of ascites. Per chart patient was here few days ago for paracentesis. Discussed with hospitalist who accepted patient to their service
ED Attending Note
-
Portions of this chart may have been created with voice recognition software.� Occasional wrong word or��sound alike� substitutions may have occurred due to the inherent limitations of voice recognition software.
Discharge Plan
Departure
Patient Disposition: Admit
Date of Disposition: 03/12/25
Time of Disposition: 21:32
Presentation/result/management discussed w/ accepting MD/DO: Hospitalist
Discharge Problem:
GI bleed
Prescriptions:
No Action
allopurinol 100 mg tablet
100 mg PO HS
simvastatin 20 mg tablet
20 mg PO QPM
ferrous sulfate 325 mg (65 mg iron) Tablet
325 mg PO DAILY
potassium chloride 10 mEq capsule, extended release
10 meq PO BID
acetaminophen 325 mg Tablet
650 mg PO Q6H PRN (Reason: mild pain/fever>101)
multivitamin Tablet
1 tab PO DAILY
carvedilol 3.125 mg Tablet
3.125 mg PO DAILY
cranberry 450 mg Tablet
405 mg PO DAILY
clonidine HCl 0.1 mg Tablet
0.1 mg PO HS PRN (Reason: high blood pressure)
triamcinolone acetonide 0.1 % Cream
1 applic TOPICAL WEEKLY
zinc 50 mg Tablet
50 mg PO DAILY
pioglitazone 30 mg Tablet
30 mg PO DAILY
[place] 3 Capsule
1,000 mg PO DAILY
cholecalciferol (vitamin D3) [Vitamin D3] 25 mcg (1,000 unit) Tablet
25 mcg PO DAILY
amlodipine 5 mg Tablet
2.5 mg PO DAILY
furosemide 40 mg Tablet
40 mg PO DAILY
spironolactone 100 mg Tablet
25 mg PO DAILY
Referrals:
Nell Harris CRNP [Family Provider] -
Interventions
Interventions:
*Risk Screen - Suicide Last Done: 03/12/25 19:38
*General Assessment Last Done: 03/12/25 19:38
*Neglect/Abuse Screening Last Done: 03/12/25 19:38
*ED- Fall Risk Assessment Last Done: 03/12/25 19:52
*ED COVID-19 Vaccine History Last Done: 03/12/25 19:38
OU-Nkjoor-Ikdtcffbug Assessment Last Done: 03/12/25 19:52
ED- Cardiac Assessment Last Done: 03/12/25 19:52
ED- Pulmonary Assessment Last Done: 03/12/25 19:52
Discharge Date and Time
Print Language: ICELANDIC
[2025-03-12 20:07] LABS: ALT (SGPT) 25 U/L (0-35); AST (SGOT) 32 U/L (14-36); Albumin 3.6 g/dl (3.5-5.0); Alkaline Phosphatase 132 U/L (38-126); Blood Urea Nitrogen 34 mg/dl (7-17); Calcium 8.9 mg/dl (8.4-10.2); Carbon Dioxide 19 mmol/L (22-30); Chloride 110 mmol/L (98-107); Estimated Creatinine Clearance 50 ml/min; Glucose 196 mg/dl (70-99); Potassium 4.1 mmol/L (3.5-5.1); Sodium 139 mmol/L (135-145); Total Bilirubin 1.7 mg/dl (0.2-1.3); Total Protein 7.8 g/dl (6.3-8.2); eGFR > 60.00
[2025-03-12 21:13] VITALS: BP 166/70
--- NOTE | 2025-03-12 21:57 | HPS.HSE ---
Family Physician
-
Family Physician: Nell Harris
Chief Complaint
-
rectal bleeding
History of Present Illness
Patient is a 84-year-old female with past medical history significant for essential hypertension, hyperlipidemia, diabetes mellitus, type II, GERD and iron deficiency anemia who presented to [facility] ED for evaluation of rectal bleeding. Patient reports
going to the bathroom this morning to urinate and she had a large amount of bright red blood from rectum in toilet and on floor. She reports that she had no associated symptoms. Denies abdominal pain, nausea, vomiting, constipation, diarrhea,
dizziness or palpitations. Patient reports soaking 2 large pads with bright red blood following morning episode. Patient was observed with bleeding by ED RN.
Medical History
Past Medical History
Past Medical History: Reports Other
Additional Past Medical History:
essential hypertension
hyperlipidemia
diabetes mellitus, type II
GERD
iron deficiency anemia
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
gout
nephrolithiasis
HOYT cirrhosis
Past Surgical History: Reports Other
Additional Past Surgical History:
Right Hip ORIF
Bladder Mesh
uterine mesh
Left Kidney Stone Extraction
Appendectomy
Hysterectomy
Tonsillectomy
Cataracts
IVC filter
Social History
Tobacco: Former Smoker (Quit in her 30s)
Alcohol: None
Family History
Family History: Not pertinent
Allergies / Home Medications
Allergies reflects when Allergies were last updated in [facility].
Home Medications with original date entered in [facility]
Allergy/Medication List:
Allergies
Allergy/AdvReac Type Severity Reaction Status Date / Time
Penicillins Allergy Hives Verified 03/12/25 19:37
Sulfa (Sulfonamide Allergy Swelling Verified 03/12/25 19:37
Antibiotics)
Home Medications
allopurinol 100 mg tablet 100 mg PO HS Gout 05/03/23
ferrous sulfate 325 mg (65 mg iron) tablet 325 mg PO DAILY Supplement 05/03/23
simvastatin 20 mg tablet 20 mg PO DAILY High Cholesterol 05/03/23
acetaminophen 325 mg tablet 650 mg PO Q6HPRN PRN mild pain/fever>101 06/20/23
carvedilol 3.125 mg tablet 3.125 mg PO DAILY 12/18/24
cholecalciferol (vitamin D3) 25 mcg (1,000 unit) tablet (Vitamin D3) 25 mcg PO DAILY 12/18/24
clonidine HCl 0.1 mg tablet 0.1 mg PO HSPRN PRN high blood pressure 12/18/24
cranberry fruit 450 mg tablet (cranberry) 450 mg PO DAILY 12/18/24
pioglitazone 30 mg tablet 30 mg PO DAILY 12/18/24
triamcinolone acetonide 0.1 % topical cream 1 applic topical DAILYPRN PRN leg itching 12/18/24
furosemide 40 mg tablet 40 mg PO DAILY 01/03/25
diphenhydramine HCl 25 mg capsule (Benadryl) 25 mg PO HSPRN PRN itching 03/12/25
omega-3 fatty acids-fish oil 684 mg-1,200 mg capsule,delayed release 1 cap PO DAILY 03/12/25
omeprazole 20 mg capsule,delayed release 20 mg PO DAILY 03/12/25
therapeutic multivitamin 1 tab PO DAILY 03/12/25
zinc sulfate 50 mg zinc (220 mg) tablet 50 mg PO DAILY 03/12/25
Review of Systems
-
History Source: Patient
Constitutional: Reports No Symptoms
EENT: Reports No Symptoms
Respiratory: Reports No Symptoms
Cardiac: Reports No Symptoms
Abdomen/GI: Reports Other (bright red blood from rectum )
: Reports No Symptoms
Musculoskeletal: Reports No Symptoms
Skin: Reports No Symptoms
Neurological: Reports No Symptoms
Endocrine: Reports No Symptoms
Hematologic/Lymphatic: Reports No Symptoms
Psych: Reports No Symptoms
Physical Exam
Vital Signs
Vital Signs
Temp Pulse Resp BP Pulse Ox
98.7 F 78 16 166/70 97
03/12/25 19:38 03/12/25 21:15 03/12/25 21:15 03/12/25 21:13 03/12/25 21:15
Physical Exam
General: Well Developed, Well Nourished, No Apparent Distress, Comfortable and Conversant
HEENT: NormoCephalic, Moist mucous membranes, Atraumatic, [place] Conjunctivae, Nose Appears Normal and Ears Appear Normal
Respiratory: Clear and Non Labored Respirations
Cardiac: S1/S2 and Regular Rhythm
GI: Soft, Non Tender and Normal Bowel Sounds
Rectal: Red, Hem Positive and Hemorrhoids
Genito-urinary: Deferred by me
Musculoskeletal: No Clubbing, No Cyanosis and No Edema
Skin: Warm and IV/Catheter Site
Neuro: Awake, Alert, AO x 3 and Nonfocal/grossly intact
Psych: Calm and Intact Judgment/Insight
Laboratory Results
-
03/12/25 19:44
03/12/25 19:44
Laboratory Results
PT 16.8 Sec (11.4-14.6) H 03/12/25 19:44
INR 1.34 03/12/25 19:44
APTT 32.9 Sec (23.4-35.0) 03/12/25 19:44
Total Bilirubin 1.7 mg/dl (0.2-1.3) H 03/12/25 19:44
AST 32 U/L (14-36) 03/12/25 19:44
ALT 25 U/L (0-35) 03/12/25 19:44
Alkaline Phosphatase 132 U/L (38-126) H 03/12/25 19:44
Data Reviewed
-
CT Scan: Report Reviewed by me (Abd/Pel: There is no evidence of active GI bleed. Colonic diverticulosis. Cirrhotic morphology with moderate volume ascites Near completely occluded proximal/mid portal vein with thrombus extending into the superior
mesenteric vein, similar to prior. There are findings of portal hypertension with )
Lab Data: Labs Reviewed by me (hgb 9.5, hct 28.5)
Impression/Plan
-
IMPRESSION/PLAN:
#GI bleed
hgb 9.5, hct 28.5
Abd/Pel CTA: There is no evidence of active GI bleed. Colonic diverticulosis.
Cirrhotic morphology with moderate volume ascites
Near completely occluded proximal/mid portal vein with thrombus extending into the superior mesenteric vein, similar to prior. There are findings of portal hypertension with splenomegaly
and numerous collateral vessels in the left hemiabdomen and pelvis.
Cholelithiasis.
Small left pleural effusion with adjacent atelectasis.
- Admit to telemetry
- Consult GI
- monitor h/h
- transfuse for hgb <7.0
- blood consent obtained
- IV Protonix daily
#essential hypertension
- continue carvedilol, clonidine and furosemide
#hyperlipidemia
- continue simvastatin
#diabetes mellitus, type II
- AccuCheck AC & HS
- SSI
- continue pioglitazone
#GERD
- continue omeprazole
#iron deficiency anemia
- continue ferrous sulfate
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
s/p banding
#gout
- continue allopurinol
#HOYT cirrhosis
s/p paracentesis 03/08/2025 with 1100 removed
#nephrolithiasis
Code status: full code
DVT prophylaxis: SCDs
[2025-03-12 22:00] VITALS: BP 160/61
--- NOTE | 2025-03-12 22:23 | W.PN.UPDATE ---
Update Note
Progress Note Update
This note serves as an addendum to the H&P by acute care occupational therapist JHOANA
HPI
84F HX HOYT cirrhosis , Portal HTN, splenomegaly, esoph varices s/p banding, gastric varices, IVC filter in place, extensive LLEX DVT ( Juky 2022) seen at ER:
- pw rectal bleeding
- HX prior esophageal varices banded
- currently still has some esophageal varices and gastric varices under survillence
- colonoscopy few months ago which showed some polyp.
- today she went to the bathroom noted significant amount of blood in the toilet.
- She then called her daughter who is a doctor and brought her in for further evaluation.
- Patient states that she has soaked 2 pads of bright red blood since then.
- The bleeding has slowed down so she came here.
ROS
No clots. No lightheadedness dizziness. No abdominal pain. No diarrhea.
Vital Signs
Temp Pulse Resp BP Pulse Ox
98.7 F 81 17 160/61 99
03/12/25 19:38 03/12/25 22:00 03/12/25 22:00 03/12/25 22:00 03/12/25 22:00
PE
Gen: NAD, cognitively intact
HEENT: anicteric , telangiectasis of cheeks
Neck: supple
Lungs: CTA
Cor: RRR
Abdomen: soft NT NG
RETAIL FIELD SUPERVISOR: AAO3
MS: no edema
Psych:appropriate
Labs
03/08/25 03/12/25
12:25 19:44
WBC 4.0 L 4.9
Hgb 9.6 L 9.5 L
Plt Count 109 L 115 L
INR 1.34
Potassium 4.6 4.1
Chloride 112 H 110 H
Carbon Dioxide 19 L 19 L
BUN 33 H 34 H
Creatinine 0.8 0.9
eGFR > 60.00 > 60.00
Total Bilirubin 1.8 [address] Abd/pelvis Angio W/wo Iv
- There is no evidence of active GI bleed. Colonic diverticulosis.
- Cirrhotic morphology with moderate volume ascites
- Near completely occluded proximal/mid portal vein with thrombus extending into the superior mesenteric vein, similar to prior.
- There are findings of portal hypertension with splenomegaly and numerous collateral vessels in the left hemiabdominal and pelvis.
- Cholelithiasis.
- Small left pleural effusion with adjacent atelectasis.
Last hospitalist admission: 06/20/2023 - 06/26/2023
DC Dxs:
1. Acute deep venous thrombosis to the left lower extremity.
2. Severe hepatic cirrhosis without evidence of hepatocellular carcinoma.
3. Severe portal hypertension with large esophageal varices.
4. Moderate splenomegaly secondary to portal hypertension.
5. IVC filter in place.
ASSESSMENT & PLAN
Acute painless rectal bleed DDX : LGIB DDX: Hemorrhoids, diverticulosis
Stable Hgb and hemodynamically stable
NEG CTA for active bleeding
HX HOYT cirrhosis with portal HTN, splenomegaly, Esopho varices s/p banding, gastric varices
Pancytopenia due to HOYT cirrhosis
- NPO except ice chips
- IV PPI daily
- Blood consented
- H & H
- GI consult
HX IVC filter insertion by IR June 23
HX provoked extensive Left Lower Extremity DVT ( 2022) following ollowing Right Hip ORIF on May 04
Hyperlipidemia
-Continue simvastatin
Diabetes Mellitus, Type II
-add ISS low
Gout
-Continue allopurinol
DVT Px: SCD
Full code
IP TLM
[2025-03-12 23:00] VITALS: BP 145/57
[2025-03-13] VITALS (8 sets, daily range): BP systolic 132–159; BP diastolic 47–66; BMI 30.2
[2025-03-13 00:58] LABS: Hematocrit 23.7 % (37.0-47.0); Hemoglobin 8.1 g/dL (12.0-16.0)
[2025-03-13 05:12] LABS: Hematocrit 24.7 % (37.0-47.0); Hemoglobin 8.2 g/dL (12.0-16.0); Mean Corp Hgb Conc. 33.2 g/dL (33.0-37.0); Mean Corpuscular Hgb 31.1 pg (27.0-31.0); Mean Corpuscular Volume 93.6 fL (81.0-99.0); Platelet Count 102 10^3/uL (130-400); Red Blood Cell Count 2.64 10^6/uL (4.20-5.40); Red Cell Dist. Width 18.6 % (11.5-14.5); White Blood Cell Count 3.7 10^3/uL (4.8-10.8)
--- NOTE | 2025-03-13 08:59 | CON.GI ---
Addendum entered and electronically signed by Melita Delgadillo MD 03/13/25 19:45:
I saw and examined the patient.
The ENTRY SPECIALIST's note was reviewed and I agree with the note.
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
III with poral HTN gastropathy on EGD 01/2025(no banding done and to review with hepatology prior to banding) duodenal erosions, ascites with prior paracentesis, chronic PVT, colon polyps, colonic angioectasias , hemorrhoids. cholelithiasis,
umbilical hernia, YOLANDA, gout, kidney stones, DVT not on anticoagulation presents with onset of rectal bleeding. In review with patient no prior bleeding. She reports large volume of blood at 7:45pm on 03/12 with sense of blood dripping out. She
states less blood overnight but still some dripping when getting up to bathroom. She denies any other GI complaints with dysphagia, GERD, nausea, vomiting, hematemesis, abdominal pain, diarrhea, constipation or prior bleeding. Last EGD/colon as
noted. CTA on admission without active GI bleeding, cirrhosis with moderate ascites. Near completely occluded proximal/mid portal vein with thrombus extending into the superior mesenteric vein, similar to prior. She also had ER visit for recent para
for 1100ml last week neg SBP. She also complaints of itching with recent eval with Dr. Faustin and addition of ? rudi per family. On admission hbg 9.5 with some drop to 8.2, platelets 115, INR 1.34, creat 0.9, bili 1.7, Ast 32, ALT 25, alk phos
132.
EGD: 02/06/25- Protano-- EGD grade III EV portal HTN gastropathy, multiple nodule in stomach, duodenal erosion- Repeat upper endoscopy recommended banding held til hepatology follow up,
colonoscopy 12/2024- Raj mike, : hemorrhoids, congested colon, 5 mm polyp distal AC HP, nodule TC,tattooed bx neg, 4 mm HP polyp recto sigmoid - bx ischemic injury, IH, few non bleeding colonic angioectasia, IH
-rectal bleeding . Possible differential-hemorrhoidal versus diverticular versus rectal varices etc. CTA- negative for active bleeding on admission
- Decompensated cirrhosis secondary to HOYT. MELD on admission 12. Follow-up with Dr. Garvin /Ramin
plan
Continue to trend H&H
Colorectal surgical eval for possible hemorrhoidal bleeding
Will advise continue follow-up with Dr. Garvin /Ramin for liver cirrhosis-need adjustment of diuretics after resolution of GI bleeding/arrangement of outpatient paracentesis on weekly basis
Clear liquid diet
Will follow
Original Note:
Consultation
-
Date/Time Consultation Requested: 03/13/25 0015
Date/Time Consultation Performed: 03/13/25 0900
Requesting Provider: MALOU Arora
Performing Provider: MALOU Gibbons, Melita Delgadillo MD
Reason for Consultation: GI bleed
Medical History
Chief Complaint / HPI
Chief Complaint: rectal bleeding
History of Present Illness:
The patient is an 83-year-old female with a past medical history significant, MASH cirrhosis(following in past with [facility] and recent seen by Ramin 03/12) history of esophageal varices on Coreg, hx prior banding and recent EGD
with noted as grade III with poral HTN gastropathy on EGD 01/2025(no banding done and to review with hepatology prior to banding) duodenal erosions, ascites with prior paracentesis, chronic PVT, colon polyps, colonic angioectasias , hemorrhoids.
cholelithiasis, umbilical hernia, YOLANDA, gout, kidney stones, DVT not on anticoagulation presents with onset of rectal bleeding. In review with patient no prior bleeding. She reports large volume of blood at 7:45pm on 03/12 with sense of blood
dripping out. She states less blood overnight but still some dripping when getting up to bathroom. She denies any other GI complaints with dysphagia, GERD, nausea, vomiting, hematemesis, abdominal pain, diarrhea, constipation or prior bleeding.
Last EGD/colon as noted. CTA on admission without active GI bleeding, cirrhosis with moderate ascites. Near completely occluded proximal/mid portal vein with thrombus extending into the superior mesenteric vein, similar to prior. She also had ER
visit for recent para for 1100ml last week neg SBP. She also complaints of itching with recent eval with Dr. Faustin and addition of ? rudi per family. On admission hbg 9.5 with some drop to 8.2, platelets 115, INR 1.34, creat 0.9, bili 1.7, Ast
32, ALT 25, alk phos 132.
EGD: 02/06/25- Protano-- EGD grade III EV portal HTN gastropathy, multiple nodule in stomach, duodenal erosion- Repeat upper endoscopy recommended banding held til hepatology follow up,
colonoscopy 12/2024- Raj mike, : hemorrhoids, congested colon, 5 mm polyp distal AC HP, nodule TC,tattooed bx neg, 4 mm HP polyp recto sigmoid - bx ischemic injury, IH, few non bleeding colonic angioectasia, IH
Past Medical History
Past Medical History: Cancer (basal cell CA, squamous cell CA ), Hypercholesterolemia, NIDDM and Other (HOYT cirrhosis with history of nonbleeding esophageal varices, YOLANDA, kidney stones, gout, obesity, colon polyps, DVT)
Past Surgical History: Appendectomy, Gynecological (Hysterectomy, uterine mesh), Orthopedic (Right hip surgery May 04, 2023), Tonsilectomy, Urological (Bladder mesh, kidney stone extraction) and Other (cataracts, mohns surgery, IVC filter , kidney
surgery )
Social History
Tobacco: Non-Smoker
Alcohol: Other (rare)
Drug: None
Living: Alone
Employment: Retired
Family History
Family History: Other (son with hx recent liver transplant with fatty liver, obesity, liver CA, grandson with crohns )
Allergies / Home Medications
Allergy/AdvReac Type Severity Reaction Status Date / Time
Penicillins Allergy Hives Verified 03/12/25 19:37
Sulfa (Sulfonamide Allergy Swelling Verified 03/12/25 19:37
Antibiotics)
�Medication �Instructions �Recorded
allopurinol 100 mg tablet 100 mg PO HS Gout 05/03/23
ferrous sulfate 325 mg (65 mg 325 mg PO DAILY Supplement 05/03/23
iron) tablet
simvastatin 20 mg tablet 20 mg PO DAILY High Cholesterol 05/03/23
acetaminophen 325 mg tablet 650 mg PO Q6HPRN PRN mild 06/20/23
pain/fever>101
carvedilol 3.125 mg tablet 3.125 mg PO DAILY 12/18/24
cholecalciferol (vitamin D3) 25 25 mcg PO DAILY 12/18/24
mcg (1,000 unit) tablet (Vitamin
D3)
clonidine HCl 0.1 mg tablet 0.1 mg PO HSPRN PRN high blood 12/18/24
pressure
cranberry fruit 450 mg tablet 450 mg PO DAILY 12/18/24
(cranberry)
pioglitazone 30 mg tablet 30 mg PO DAILY 12/18/24
triamcinolone acetonide 0.1 % 1 applic topical DAILYPRN PRN leg 12/18/24
topical cream itching
furosemide 40 mg tablet 40 mg PO DAILY 01/03/25
diphenhydramine HCl 25 mg capsule 25 mg PO HSPRN PRN itching 03/12/25
(Benadryl)
omega-3 fatty acids-fish oil 684 1 cap PO DAILY 03/12/25
mg-1,200 mg capsule,delayed release
omeprazole 20 mg capsule,delayed 20 mg PO DAILY 03/12/25
release
therapeutic multivitamin 1 tab PO DAILY 03/12/25
zinc sulfate 50 mg zinc (220 mg) 50 mg PO DAILY 03/12/25
tablet
Review of Systems
-
History Source: Patient and Family
Constitutional: Reports Weight Gain (with fluid )
EENT: Reports No Symptoms
Respiratory: Reports No Symptoms
Cardiac: Reports Other (LE swelling )
Abdomen/GI: Reports Bloody Stools and Other (abd distention wtih fluid )
: Reports No Symptoms
Musculoskeletal: Reports No Symptoms
Skin: Reports Itching
Neurological: Reports No Symptoms
Endocrine: Reports No Symptoms
Hematologic/Lymphatic: Reports Bleeding
Vital Signs
Temp Pulse Resp BP Pulse Ox
98.1 F 72 11 136/56 95
03/13/25 04:50 03/13/25 04:40 03/13/25 04:40 03/13/25 04:40 03/13/25 04:40
Physical Exam
Exam
General: Well Developed, Well Nourished and No Apparent Distress
HEENT: Normocephalic and Anicteric
Respiratory: Clear
Cardiac: Regular Rhythm
GI: Soft, Non Tender and Distended
Rectal: Hemorrhoids (large hemorrhoids vs prolapse with visible clot on area, formed pieces of brown stool in rectal vault )
Musculoskeletal: No Clubbing and No Cyanosis
Skin: Warm and Dry
Neuro: Awake, Alert and AO x 3
Psych: Calm
Results
WBC 3.7 10^3/uL (4.8-10.8) L 03/13/25 04:55
Hgb 8.2 g/dL (12.0-16.0) L 03/13/25 04:55
Hct 24.7 % (37.0-47.0) L 03/13/25 04:55
MCV 93.6 fL (81.0-99.0) 03/13/25 04:55
Plt Count 102 10^3/uL (130-400) L 03/13/25 04:55
Absolute Neuts (auto) 3.1 10^3/uL (1.4-6.5) 03/12/25 19:44
PT 16.8 Sec (11.4-14.6) H 03/12/25 19:44
INR 1.34 03/12/25 19:44
APTT 32.9 Sec (23.4-35.0) 03/12/25 19:44
Sodium 139 mmol/L (135-145) 03/12/25 19:44
Potassium 4.1 mmol/L (3.5-5.1) 03/12/25 19:44
Chloride 110 mmol/L (98-107) H 03/12/25 19:44
Carbon Dioxide 19 mmol/L (22-30) L 03/12/25 19:44
BUN 34 mg/dl (7-17) H 03/12/25 19:44
Creatinine 0.9 mg/dL (0.6-1.0) 03/12/25 19:44
Calcium 8.9 mg/dl (8.4-10.2) 03/12/25 19:44
Total Bilirubin 1.7 mg/dl (0.2-1.3) H 03/12/25 19:44
AST 32 U/L (14-36) 03/12/25 19:44
ALT 25 U/L (0-35) 03/12/25 19:44
Alkaline Phosphatase 132 U/L (38-126) H 03/12/25 19:44
Diagnostic Image Results:
03/12/25 CT angio
There is no evidence of active GI bleed. Colonic diverticulosis.
Cirrhotic morphology with moderate volume ascites
Near completely occluded proximal/mid portal vein with thrombus extending into the superior mesenteric vein, similar to prior. There are findings of portal hypertension with splenomegaly and numerous collateral vessels in the left hemiabdomen and
pelvis.
Cholelithiasis.
Small left pleural effusion with adjacent atelectasis.
03/08/25 para 1100 cc of clear yellow ascitic fluid was evacuated neg SBP
02/01/25 US Abd W Abd Doppler
1. Occlusive portal vein thrombosis. This appears progressed as compared with the previous CT examination.
2. Cirrhosis and splenomegaly related to portal hypertension. No abnormal focal hepatic lesion identified sonographically.
3. Cholelithiasis.
4. Left nephrolithiasis. Malrotation and scarring of the left kidney as seen on previous CT.
5. Small umbilical hernia which contained ascites on the previous CT is not identified on the current examination.
12/18/24 para 1350ml
11/30/24 CT Abd/pel W Iv And Oral Contr
IMPRESSION: Moderate left and small right pleural effusions. Progressed.
Moderate abdominopelvic ascites. Progressed.
Findings suggesting mild volume overload or third spacing. Progressed.
Partial portal vein and superior mesenteric vein thrombosis. New
Mild splenomegaly. Stable
Findings consistent with hepatic cirrhosis. Progressed.
Several large gallstones. Enlarged.
Moderate splenomegaly. Progressed.
Findings concerning for a mural mass of the transverse colon. Direct visualization or barium enema recommended when the patient is able. Comparison is difficult without oral contrast present previously
Diverticulosis. Stable
Prior GI Procedures:
EGD: 02/06/25- Protano-- EGD grade III EV portal HTN gastropathy, multiple nodule in stomach, duodenal erosions
- Repeat upper endoscopy at appointment to be
scheduled for surveillance.
Given NO history of GIB (was banded prophylactically
before for need for AC) and questionable history of
GOV with nodularity seen at [facility] and large EV with no
active bleeding, decision made to hold off on banding.
Will discuss with hepatology, patient before
proceeding with banding at another date. Pt on
carvedilol currently.
Plan for HP breath test for duodenal erosions and will
start omeprazole AFTER HP breath test short course
history of ascites.
Will reach out to hepatology Dr. Torres for appt.
Updated daughter.
EGD: 05/2023 protano - Grade III esophageal varices.
- Erythematous mucosa in the stomach.
- Gastric erosion with no bleeding and no stigmata of
recent bleeding.
- Type 1 gastroesophageal varices (GOV1, esophageal
varices which extend along the lesser curvature),
without bleeding.
- Congested duodenal mucosa.
- Normal second portion of the duodenum.
- No specimens collected.
EGD: 2019 Dr. Perez: Grade II esophageal varices, Z-line regular, 39 cm from the incisors.Chronic gastritis. Biopsied. Normal third portion of the duodenum. Biopsied. Path normal.
colonoscopy 12/2024- Raj mike, : - Hemorrhoids found on perianal exam.
- The examined portion of the ileum was normal.
- Congested mucosa in the entire examined colon.
- One 5 mm polyp in the distal ascending colon,
removed with a cold snare. Resected and retrieved.
- Subepithelial nodule in the transverse colon.
Biopsied. Tattooed.
- One 4 mm polyp at the recto-sigmoid colon, removed
with a cold snare. Resected and retrieved.
- Diverticulosis in the sigmoid colon and in the
descending colon.
- A few non-bleeding colonic angioectasias. Treated
with argon plasma coagulation (APC).
- Internal hemorrhoids.
Colonoscopy: 2019, Dr. Perez: diverticulosis otherwise normal
Assessment / Plan
-
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
with noted as grade III with poral HTN gastropathy on EGD 01/2025(no banding done and to review with hepatology prior to banding) duodenal erosions, ascites with prior paracentesis, chronic PVT, colon polyps, colonic angioectasias , hemorrhoids.
cholelithiasis, umbilical hernia, YOLANDA, gout, kidney stones, DVT not on anticoagulation presents with onset of rectal bleeding. In review with patient no prior bleeding. She reports large volume of blood at 7:45pm on 03/12 with sense of blood
dripping out. She states less blood overnight but still some dripping when getting up to bathroom. She denies any other GI complaints with dysphagia, GERD, nausea, vomiting, hematemesis, abdominal pain, diarrhea, constipation or prior bleeding.
Last EGD/colon as noted. CTA on admission without active GI bleeding, cirrhosis with moderate ascites. Near completely occluded proximal/mid portal vein with thrombus extending into the superior mesenteric vein, similar to prior. She also had ER
visit for recent para for 1100ml last week neg SBP. She also complaints of itching with recent eval with Dr. Faustin and addition of ? rudi per family. On admission hbg 9.5 with some drop to 8.2, platelets 115, INR 1.34, creat 0.9, bili 1.7, Ast
32, ALT 25, alk phos 132.
EGD: 02/06/25- Vadimano-- EGD grade III EV portal HTN gastropathy, multiple nodule in stomach, duodenal erosion- Repeat upper endoscopy recommended banding held til hepatology follow up,
colonoscopy 12/2024- Raj mike, : hemorrhoids, congested colon, 5 mm polyp distal AC HP, nodule TC,tattooed bx neg, 4 mm HP polyp recto sigmoid - bx ischemic injury, IH, few non bleeding colonic angioectasia, IH
-rectal bleeding concern for local source
-hx MASH cirrhosis
-hx grade III EV recent EGD no banding done
-portal gastropathy
-LE edema
-PVT
-colonic angioectasisas
-hemorrhoids
-mild coagulopathy
-thrombocytopenia
-itching
-anemia
-palp mass above umbilical area
other med problems:
NIDDM
-colon polyps
cholelithiasis
-umbilical hernia
renal stone with prior kidney surgery
-Skin CA
-DVT IVC filter
PLAN:
etiology of bleeding with concern for local source with formed stool in rectal vault and blood dripping out- hemorrhoid, prolapse vs rectal varices
currently stable with small amount of blood on rectal area on exam with brown stool in rectal vault
will have colorectal eval
NPO til colorectal eval -- ok for clears from GI standpoint
MELD 12 on admission
trend hgb and stool record
CTA neg
eval need for recurrent paracentesis -- may need weekly tap last completed last tuesday
cont coreg
cont PPI
cont lasix 40mg consider adding Aldactone
to start OP rudi for itching
OP follow up with Dr. Garvin and did telehealth with Dr. Faustin 03/12
updated daughter
-
-
Thank you for consultation and allowing me to participate in the patient's care. Please call the clinical implementation specialist GI physician during the after hours with any questions or concerns.
[2025-03-13] MEDS: NSS (PRESERVATIVE FREE) 10 ML IV (10:02)
[2025-03-13] MEDS: FEOSOL 325 MG PO (10:02)
[2025-03-13] MEDS: PROTONIX IV 40 MG IV (10:02)
[2025-03-13] MEDS: THERAGRAN 1 TABLET PO (10:02)
[2025-03-13] MEDS: VITAMIN D3 (cholecalciferol) 25 MCG PO (10:02)
[2025-03-13] MEDS: COREG 3.125 MG PO (10:03)
[2025-03-13] MEDS: LASIX 40 MG PO (10:03)
[2025-03-13] MEDS: LIPITOR 10 MG PO (10:03)
--- NOTE | 2025-03-13 10:50 | W.PN.HOSP.TC ---
Today's Communication/Plan
-
Keep NPO. Continue with IV fluids. Follow H&H. Await colorectal surgery input.
SBP prophylaxis per GI.
Assessment / Plan
Assessment / Plan
Acute painless rectal bleeding-hemodynamically stable. Drop in H&H since admission noted. Currently 8.2. No acute chest pain or shortness of breath. Aim to keep hemoglobin more than 7. Keep NPO. Discussed with GI team. Requesting a colorectal
surgery consult for possible hemorrhoids as etiology. Differential includes diverticulosis, colon angiectasia's, congestive colopathy-colonoscopy from December 2024 noted. Doubt a brisk bleeding from esophageal varices.
Follow H&H.
History of Tucker cirrhosis with decompensation. Currently without any clinical evidence of hepatic encephalopathy. Has moderate ascites, will consider to tap once GI bleeding issues are over. She recently had a therapeutic paracentesis. Continue
with Lasix once GI issues have settled. Will discuss with GI regarding role of ceftriaxone/SBP prophylaxis in the setting of lower GI bleed.
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
Esophageal varices status post prior banding.
Diabetes mellitus type 2-on Actos which I would hold. Continue with sliding scale insulin.
Hyperlipidemia-on statin
History of gout-on allopurinol
History of DVT s/p IVC filter. Not on anticoagulation because of bleeding risk
Full code
Discussed with GI this morning
Total time spent on today's encounter was 52 minutes which included time spent in counseling the patient/family regarding diagnosis and treatment plan as listed above, goals of care, and symptom management. Case was discussed with nursing staff,
specialists, and care coordinators/case management. All labs and imaging personally reviewed by me. Remainder the time spent in detailed review of previous records, lab data, imaging, and other medical provider documentation.
Anticipated Discharge: > 48 hours
Subjective/Interval History
-
Date of Service: March 13, 2025
Patient presented with painless rectal bleeding. No prior history of GI bleed.
No abdominal pain. No nausea vomiting. No fever or chills.
Denies dizziness. No shortness of breath or chest pain.
Objective Data
-
Labs:
Laboratory Results
03/13/25 03/13/25 03/13/25
00:27 04:55 12:19
WBC 3.7 L
Hgb 8.1 L 8.2 L Pending
Hct 23.7 L 24.7 L Pending
Plt Count 102 L
Vital Signs:
Vital Signs
Temp Pulse Resp BP Pulse Ox
98.1 F 69 12 140/54 95
03/13/25 09:09 03/13/25 09:09 03/13/25 09:09 03/13/25 09:09 03/13/25 04:40
Physical Exam
-
Respiratory: Clear to Auscultation
Cardiac: Regular Rhythm, S1/S2 and Murmur; Negative Tachycardic
GI: Soft, Nontender, Normal Bowel Sounds and Distended
Neuro: AO x 3; Negative Tremors
Psych: Calm; Negative Confused
Data Reviewed
-
Labs: Labs Reviewed by me
[2025-03-13 10:52] LABS: Glucose - Point of Care 121 mg/dl (70-99)
[2025-03-13] MEDS: ZINC 50 MG PO (10:52)
[2025-03-13] MEDS: ACTOS 30 MG PO (10:52)
[2025-03-13] MEDS: NSS 1000 IV (12:41)
[2025-03-13 13:01] LABS: Hemoglobin 8.6 g/dL (12.0-16.0)
--- NOTE | 2025-03-13 13:02 | CON.CRS ---
Consultation
-
Date/Time Consultation Requested: 03/13/25 @9:40
Date/Time Consultation Performed: 03/13/25 @11:00
Requesting Provider: MALOU Gibbons
Performing Provider: Jesus Manuel Grady MD
Reason for Consultation: Rectal bleeding
Medical History
-
Chief Complaint: Rectal bleeding
History of Present Illness:
84-year-old female with cirrhosis ([facility]) with known esophageal varices (history of banding), gastropathy, and ascites who presents with the acute onset of rectal bleeding that began last night. There was a lot of bright red blood per rectum when
she sat to urinate. The blood was seen on the floor. She denies any dizziness or rectal pain. The blood was not associated with her bowels and her bowels have been regular. She called her daughter who brought her to the ED. She has had another
episode of bleeding while sitting on the commode to urinate and recently a much smaller episode. Her last colonoscopy was on 01/03/2025 and multiple polyps were removed. There is also left-sided diverticular disease, a few localized angiectasias in
the left colon that were treated with argon beam, and hemorrhoids. She states she does not have a history of bleeding hemorrhoids. Her last paracentesis was last week.
While in the ED her vital signs are stable and she is not tachycardic. Her hemoglobin upon arrival was 9.5 g/dL which is essentially unchanged. A repeat hemoglobin is 8.2 g/dL. Her platelets are around 100,000 and her INR is 1.34 and APTT of 32.9.
A CT angio did not reveal any active bleeding. There continues to be findings consistent with cirrhosis and moderate ascites. There is a near completely occluded portal vein with thrombus extending into the superior mesenteric vein, similar to
prior. There are prominent collateral vessels in the pelvis and retroaortic left renal vein.
Past Medical History
Past Medical History: GERD, HTN, Hypercholesterolemia, NIDDM and Other (Iron deficiency anemia; cirrhosis with varices and ascites; gout; nephrolithiasis)
Past Surgical History: Appendectomy, Gynecological (Hysterectomy), Orthopedic (Right hip replacement), Tonsilectomy, Urological (Bladder sling and what sounds like a sacrocolpopexy; kidney stone extraction) and Other (IVC filter; cataracts)
Social History
Tobacco: Non-Smoker
Alcohol: None
Allergies / Home Medications
Allergy/AdvReac Type Severity Reaction Status Date / Time
Penicillins Allergy Hives Verified 03/12/25 19:37
Sulfa (Sulfonamide Allergy Swelling Verified 03/12/25 19:37
Antibiotics)
�Medication �Instructions �Recorded �Confirmed �Type
allopurinol 100 mg tablet 100 mg PO HS Gout 05/03/23 03/12/25 History
ferrous sulfate 325 mg (65 mg 325 mg PO DAILY Supplement 05/03/23 03/12/25 History
iron) tablet
simvastatin 20 mg tablet 20 mg PO DAILY High Cholesterol 05/03/23 03/12/25 History
acetaminophen 325 mg tablet 650 mg PO Q6HPRN PRN mild 06/20/23 03/12/25 History
pain/fever>101
carvedilol 3.125 mg tablet 3.125 mg PO DAILY 12/18/24 03/12/25 History
cholecalciferol (vitamin D3) 25 25 mcg PO DAILY 12/18/24 03/12/25 History
mcg (1,000 unit) tablet (Vitamin
D3)
clonidine HCl 0.1 mg tablet 0.1 mg PO HSPRN PRN high blood 12/18/24 03/12/25 History
pressure
cranberry fruit 450 mg tablet 450 mg PO DAILY 12/18/24 03/12/25 History
(cranberry)
pioglitazone 30 mg tablet 30 mg PO DAILY 12/18/24 03/12/25 History
triamcinolone acetonide 0.1 % 1 applic topical DAILYPRN PRN leg 12/18/24 03/12/25 History
topical cream itching
furosemide 40 mg tablet 40 mg PO DAILY 01/03/25 03/12/25 History
diphenhydramine HCl 25 mg capsule 25 mg PO HSPRN PRN itching 03/12/25 03/12/25 History
(Benadryl)
omega-3 fatty acids-fish oil 684 1 cap PO DAILY 03/12/25 03/12/25 History
mg-1,200 mg capsule,delayed release
omeprazole 20 mg capsule,delayed 20 mg PO DAILY 03/12/25 03/12/25 History
release
therapeutic multivitamin 1 tab PO DAILY 03/12/25 03/12/25 History
zinc sulfate 50 mg zinc (220 mg) 50 mg PO DAILY 03/12/25 03/12/25 History
tablet
Review of Systems
-
History Source: Patient
All other systems: Negative unless noted
A 10 point review of systems was completed, and was negative except as per HPI.
Physical Exam
Vital Signs
Temp 98.1 F 03/13/25 09:09
Pulse 69 03/13/25 09:09
Resp Rate 12 03/13/25 09:09
Blood pressure 140/54 03/13/25 09:09
SaO2 95 03/13/25 04:40
03/12/25 03/13/25 03/14/25
06:59 06:59 06:59
Actual Weight 84.8 kg
Body Mass Index (BMI) 30.2
Lab Results / Allergies
03/13/25 12:40
03/12/25 19:44
WBC 3.7 10^3/uL (4.8-10.8) L 03/13/25 04:55
Hgb 8.6 g/dL (12.0-16.0) L 03/13/25 12:40
Hct 25.0 % (37.0-47.0) L 03/13/25 12:40
Plt Count 102 10^3/uL (130-400) L 03/13/25 04:55
Abs Immat Gran (auto) 0.0 10^3/uL (0-0.05) 03/12/25 19:44
Neutrophils % 64.2 % (42.2-75.2) 03/12/25 19:44
Allergy/AdvReac Type Severity Reaction Status Date / Time
Penicillins Allergy Hives Verified 03/12/25 19:37
Sulfa (Sulfonamide Allergy Swelling Verified 03/12/25 19:37
Antibiotics)
Physical Exam
General: Well Developed and Well Nourished
HEENT: Normocephalic and Anicteric
GI: Distended, Obese and Other (Reducible epigastric hernia. Caput medusa)
Rectal: Other (Enlarged external hemorrhoids circumferentially; the right anterior external hemorrhoid has some clot but there is no infection. ZHANG with formed stool and no blood.)
Neuro: Awake and Alert
Data Reviewed
-
CT Scan: Image Personally Visualized and interpreted, Report Reviewed by me, Discussed with Patient and Discussed with Family
Labs: Labs Reviewed by me, Discussed with Patient and Discussed with Family
Assessment / Plan
-
Rectal bleeding in a patient with cirrhosis and portal hypertension.
I reviewed the possible sources of the bleeding, i.e. a hemorrhoid (external versus internal), rectal varices, or more proximal source. Given the findings on exam and her clinical history, I suspect it is from the external hemorrhoid.
There is no active bleeding at the present time and I recommend expectant management. I explained there is risk to performing incision including worsening of the bleeding and infection. If the bleeding persists, I will recommend a flexible
sigmoidoscopy and if varices are present, sclerotherapy, events from the external hemorrhoid, I would consider placing a suture. The plan is for admission for observation for ongoing bleeding. There are no plans for intervention at this time. All
questions answered and she is in agreement with the plan.
I called and updated the patient's daughter.
[2025-03-13] MEDS: ZYLOPRIM 100 MG PO (21:39)
[2025-03-14 03:29] VITALS: BP 140/48
[2025-03-14 07:28] LABS: Glucose - Point of Care 107 mg/dl (70-99)
[2025-03-14 07:30] VITALS: BP 159/51
[2025-03-14 07:58] LABS: Hemoglobin 7.8 g/dL (12.0-16.0); Mean Corp Hgb Conc. 33.9 g/dL (33.0-37.0); Mean Corpuscular Volume 91.3 fL (81.0-99.0); Mean Platelet Volume 11.6 fL (7.4-10.4); Platelet Count 105 10^3/uL (130-400); Red Blood Cell Count 2.52 10^6/uL (4.20-5.40); Red Cell Dist. Width 18.6 % (11.5-14.5); White Blood Cell Count 4.4 10^3/uL (4.8-10.8)
[2025-03-14 08:09] LABS: INR 1.45; PT 18.1 Sec (11.4-14.6)
[2025-03-14 08:42] LABS: ALT (SGPT) 19 U/L (0-35); AST (SGOT) 28 U/L (14-36); Albumin 2.5 g/dl (3.5-5.0); Alkaline Phosphatase 98 U/L (38-126); Blood Urea Nitrogen 37 mg/dl (7-17); Calcium 8.4 mg/dl (8.4-10.2); Carbon Dioxide 20 mmol/L (22-30); Chloride 113 mmol/L (98-107); Estimated Creatinine Clearance 41 ml/min; Glucose 115 mg/dl (70-99); Potassium 3.7 mmol/L (3.5-5.1); Sodium 141 mmol/L (135-145); Total Bilirubin 1.6 mg/dl (0.2-1.3); Total Protein 5.9 g/dl (6.3-8.2); eGFR 49.24
[2025-03-14] MEDS: NSS 1000 IV (08:44)
[2025-03-14] MEDS: THERAGRAN 1 TABLET PO (08:45)
[2025-03-14] MEDS: LIPITOR 10 MG PO (08:46)
[2025-03-14] MEDS: VITAMIN D3 (cholecalciferol) 25 MCG PO (08:47)
[2025-03-14] MEDS: ACTOS 30 MG PO (08:47)
[2025-03-14] MEDS: ZINC 50 MG PO (08:47)
[2025-03-14] MEDS: COREG 3.125 MG PO (08:48)
[2025-03-14] MEDS: LASIX 40 MG PO (08:48)
[2025-03-14] MEDS: FEOSOL 325 MG PO (08:49)
[2025-03-14] MEDS: PROTONIX IV 40 MG IV (08:51)
[2025-03-14] MEDS: NSS (PRESERVATIVE FREE) 10 ML IV (08:52)
--- NOTE | 2025-03-14 09:14 | W.PN.CRS1 ---
Today's Communication / Plan
-
as below
Assessment/Plan
-
Rectal bleeding, most likely from the external hemorrhoid. History of cirrhosis and portal htn.
No signs of active bleeding.
Advance diet and monitor.
Ok for discharge if no further bleeding.
Subjective Data
Subjective Data
Date of Service: March 14, 2025
Small amount of bleeding overnight. Her stools are loose and she can't tell if the stools are bloody. She denies any pain.
Objective Data
-
Vital Signs
Temp Pulse Resp BP Pulse Ox
98.0 F 72 20 159/51 92
03/14/25 07:30 03/14/25 07:30 03/14/25 07:30 03/14/25 07:30 03/14/25 07:30
Intake & Output
03/13/25 03/14/25 03/15/25
06:59 06:59 06:59
Intake Total 600 / 600
Output Total 400 / 400
Balance 200 / 200
Intake:
Oral fluids 600 / 600
Output:
Urine, Voided 400 / 400
Other:
Number of unmeasured voidings 1
Number of approximated SMALL 2
amounts of urine
Number of approximated MODERATE 1 1
amounts of urine
How many times incontinent 1
SMALL amount urine
Lab Results
03/14/25 06:51
03/14/25 06:51
Physical Exam
-
General: No Acute Distress
Abdomen: Soft and Non Tender
Rectal: Other (small amount of clot in the right anterior hemorrhoid. No bleeding, nontender. )
--- NOTE | 2025-03-14 11:22 | CM ---
Addendum entered by Kayla Kwok 03/15/25 08:24:
Late entry from 03/14/25
Patient for discharge, confirms daughter will transport home. IMM signed in chart.
Original Note:
CM reviewed chart, patient seen bedside, initial assessment completed. Patient resides independently in a multiple story home, first floor set up, three steps to enter. Patient reports when her grandchildren are home from college they will stay on
the upper level. Patient reports her daughter and son in law are a good support. Patient reports having multiple railings, grab bars, walker and four canes at home. Patient reports she has had VN in the past, unsure with who, [facility] in past.
Patient confirms PCP Nell Harris, pharmacy [facility], confirms prescription coverage. Patient reports she is hopeful to d/c home, confirms she will have transportation. CM will continue to follow for all discharge planning needs.
Plan; home no needs anticipated.
[2025-03-14 11:53] VITALS: BP 129/90
[2025-03-14 12:13] LABS: Glucose - Point of Care 231 mg/dl (70-99)
[2025-03-14 14:00] VITALS: BP 145/51; BP_SYST 61
--- NOTE | 2025-03-14 14:15 | W.PN.HOSP.TC ---
Today's Communication/Plan
-
IR paracentesis
Advance diet
DC planning
Assessment / Plan
Assessment / Plan
Acute painless rectal bleeding-hemodynamically stable. Drop in H&H since admission noted. Currently 7.8 . Aim to keep >7.0. Appt GI and colorectal surgery input . Possible hemorrhoids vs other lower GI lesions. Differential includes
diverticulosis, colon angiectasia's, congestive colopathy-colonoscopy from December 2024 noted.
With no signs of active bleeding ,CRS holding on interventions and recommending medical tx.
Advance diet .
History of Tucker cirrhosis with decompensation. Currently without any clinical evidence of hepatic encephalopathy. Has moderate ascites, consider tap prior to dc as distension is worse. She recently had a therapeutic paracentesis. Continue with
Lasix . IR consulted for paracentesis by IR.
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
Esophageal varices status post prior banding.
Diabetes mellitus type 2-on Actos which I would hold. Continue with sliding scale insulin.
Hyperlipidemia-on statin
History of gout-on allopurinol
History of DVT s/p IVC filter. Not on anticoagulation because of bleeding risk
Full code
Advance diet and dc home if she tolerates it and once paracentesis is done
Anticipated Discharge: Today
Subjective/Interval History
-
Date of Service: March 14, 2025
Denies further rectal bleeding.
No abdo pain but feels abdo distension has increased.
No N/V
No fever or chills
Objective Data
-
Labs:
Laboratory Results
03/14/25
06:51
WBC 4.4 L
Hgb 7.8 L
Hct 23.0 L
Plt Count 105 L
PT 18.1 H
INR 1.45
Sodium 141
Potassium 3.7
Chloride 113 H
Carbon Dioxide 20 L
BUN 37 H
Creatinine 1.1 H
Glucose 115 H
Calcium 8.4
Total Bilirubin 1.6 H
AST 28
ALT 19
Alkaline Phosphatase 98
Vital Signs:
Vital Signs
Temp Pulse Resp BP Pulse Ox
97.9 F 60 20 129/90 97
03/14/25 11:53 03/14/25 11:53 03/14/25 11:53 03/14/25 11:53 03/14/25 11:53
I&O
03/13/25 03/14/25 03/15/25
06:59 06:59 06:59
Intake Total 600 / 600
Output Total 400 / 400
Balance 200 / 200
Review of Systems
-
Respiratory: Denies Trouble Breathing
Cardiac: Denies Chest Pain
Neuro: Denies Dizzy
Physical Exam
-
General: Comfortable
HEENT: Moist Mucous Membranes
Respiratory: Clear to Auscultation
Cardiac: Regular Rhythm and S1/S2
GI: Soft, Nontender, Normal Bowel Sounds and Distended
Neuro: AO x 3; Negative Tremors
Psych: Calm; Negative Confused
Data Reviewed
-
Labs: Labs Reviewed by me
[2025-03-14 14:50] VITALS: BP 134/49
--- NOTE | 2025-03-14 14:56 | W.PN.GI.CBS2 ---
Today's Communication / Plan
-
IR paracentesis
outpatient GI follow up
Assessment / Plan
-
The patient is an 83-year-old female with a past medical history significant, MASH cirrhosis(following in past with [facility] and recent seen by Ramin 03/12) history of esophageal varices on Coreg, hx prior banding and recent EGD
with noted as grade III with poral HTN gastropathy on EGD 01/2025(no banding done and to review with hepatology prior to banding) duodenal erosions, ascites with prior paracentesis, chronic PVT, colon polyps, colonic angioectasias , hemorrhoids.
cholelithiasis, umbilical hernia, YOLANDA, gout, kidney stones, DVT not on anticoagulation presents with onset of rectal bleeding. In review with patient no prior bleeding. She reports large volume of blood at 7:45pm on 03/12 with sense of blood
dripping out. She states less blood overnight but still some dripping when getting up to bathroom. She denies any other GI complaints with dysphagia, GERD, nausea, vomiting, hematemesis, abdominal pain, diarrhea, constipation or prior bleeding.
Last EGD/colon as noted. CTA on admission without active GI bleeding, cirrhosis with moderate ascites. Near completely occluded proximal/mid portal vein with thrombus extending into the superior mesenteric vein, similar to prior. She also had ER
visit for recent para for 1100ml last week neg SBP. She also complaints of itching with recent eval with Dr. Faustin and addition of ? rudi per family. On admission hbg 9.5 with some drop to 8.2, platelets 115, INR 1.34, creat 0.9, bili 1.7, Ast
32, ALT 25, alk phos 132.
EGD: 02/06/25- [facility]ano-- EGD grade III EV portal HTN gastropathy, multiple nodule in stomach, duodenal erosion- Repeat upper endoscopy recommended banding held til hepatology follow up,
colonoscopy 12/2024- Raj mike, : hemorrhoids, congested colon, 5 mm polyp distal AC HP, nodule TC,tattooed bx neg, 4 mm HP polyp recto sigmoid - bx ischemic injury, IH, few non bleeding colonic angioectasia, IH
-rectal bleeding concern for local source
-hx MASH cirrhosis
-hx grade III EV recent EGD no banding done
-portal gastropathy
-LE edema
-PVT
-colonic angioectasisas
-hemorrhoids
-mild coagulopathy
-thrombocytopenia
-itching
-anemia
-palp mass above umbilical area
other med problems:
NIDDM
-colon polyps
cholelithiasis
-umbilical hernia
renal stone with prior kidney surgery
-Skin CA
-DVT IVC filter
PLAN:
No further active rectal bleeding. Colorectal notes reviewed- likely hemorrhoids . Advance diet to 2 g sodium diet
Avoid constipation. Topical hemorrhoidal preparation as needed
Advised to use wet wipes to clean
Sitz bath as needed
Recommend paracentesis prior to discharge
Add spironolactone 25 mg to her current diuretic
Will recommend follow-up with Dr. Garvin /Ramin for decompensated liver cirrhosis.message sent to office
No further GI recommendation at this point. Plan discussed with hospitalist. /patient. Will sign off
Total Time Spent with Patient (in minutes): 35
Subjective
Subjective
Date of Service: March 14, 2025
No further gross rectal bleeding. Mostly brown stools.
Objective
Data Reviewed
Laboratory Data:
Laboratory Results
03/14/25 06:51
03/14/25 06:51
Laboratory Results
PT 18.1 Sec (11.4-14.6) H 03/14/25 06:51
INR 1.45 03/14/25 06:51
APTT 32.9 Sec (23.4-35.0) 03/12/25 19:44
Total Bilirubin 1.6 mg/dl (0.2-1.3) H 03/14/25 06:51
AST 28 U/L (14-36) 03/14/25 06:51
ALT 19 U/L (0-35) 03/14/25 06:51
Alkaline Phosphatase 98 U/L (38-126) 03/14/25 06:51
Vital Signs and I&O:
Vital Signs
Temp Pulse Resp BP Pulse Ox
97.9 F 60 20 129/90 97
03/14/25 11:53 03/14/25 11:53 03/14/25 11:53 03/14/25 11:53 03/14/25 11:53
I&O
03/13/25 03/14/25 03/15/25
06:59 06:59 06:59
Intake Total 600 / 600
Output Total 400 / 400
Balance 200 / 200
Physical Exam
Physical Exam
GI: Soft, Distended and Non Tender
[2025-03-14 15:00] VITALS: BP 123/49
[2025-03-14 15:44] LABS: Body Fluid Mononuclear 70.1 %; Body Fluid Polymorphonuclear 29.9 %; Body Fluid WBC 237 /CUMM
[2025-03-14 15:46] LABS: Body Fluid Albumin < 1.0 g/dl; Body Fluid Protein < 2.0 g/dl
--- NOTE | 2025-03-14 15:55 | W.DCSUMMARY ---
Discharge Summary
Discharge Data
Date of Admission: 03/12/25
Date of Discharge: 03/14/25
-
Pending Results: Yes (Culture from ascitic fluid)
Hospital Course
Primary diagnosis:
Rectal bleeding suspected hemorrhoidal
Secondary diagnosis:
MASH with cirrhosis
Decompensated liver disease with need for recurrent ascites paracentesis
History of portal vein thrombosis and superior vein thrombosis
Esophageal varices
Diabetes mellitus type 2
Hyperlipidemia
History of gout
Next history of DVT status post IVC filter
Hospital course:
84-year-old lady with a history of cirrhosis and decompensated liver disease with esophageal varices and ascites presented with acute onset of rectal bleeding. It was bright red per rectum. Blood was seen on the floor. Blood was not associated with
bowels. Bowels have been regular. While in ER ,She has had another episode of bleeding while sitting on the commode to urinate and recently a much smaller episode She had a colonoscopy in December 2024 which showed polyps were removed. There was
left-sided diverticular disease. There are also angiectasia's in the left colon treated with argon beam. Hemorrhoids were also noted then. No prior history of bleeding hemorrhoids.
She was hemodynamically stable. She had a CT of the abdomen pelvis which showed no active bleeding. There were finding consistent with cirrhosis and moderate ascites. She has completely occluded portal vein with thrombus extending into superior
mesenteric vein as before. She has prominent collateral vessels in the pelvis and the retroaortic left renal vein. Was not a candidate for anticoagulation because of cirrhosis.
Clinical exam by colorectal surgery-Enlarged external hemorrhoids circumferentially; the right anterior external hemorrhoid has some clot but there is no infection. ZHANG with formed stool and no blood.
She had no further bleeding in the hospital. Hemoglobin was 9.5 which dropped to 7.8. She has noted chronic anemia with hemoglobin around nines.
With suspected hemorrhoidal bleeding and her other associated condition colorectal surgery wanted to treated conservatively. Anusol as needed was recommended. She was tolerating a diet and she was discharged home.
She already had a buildup of ascites and it was getting more tense so a therapeutic paracentesis was arranged. No evidence of SBP. Final cultures pending. GI added spironolactone to her diuretic regimen on this admission.
Consultants on board:
Colorectal surgery-Amor Aguilar
GI-Berry Palacio
Discharge Plan
-
Patient Disposition: Home (Routine Discharge)
Discharge Diagnosis/Procedures: Rectal bleeding suspected hemorrhoidal;cirrhosis ;s/p ascitic tap on this admission
Diet: Diabetic, Carb Controlled
Activity: As tolerated
Driving Restrictions: As prior to admission
Bathing Restrictions: None
Blood Work: CBC and BMP blood work in one week -arrange through your PCP
Specialty Instructions: Weigh Daily- Call MD for wt gain/loss 3 lbs overnight/5 lbs in 1 week
Referrals:
Amor Grady MD [Active] - in two weeks
Nell Harris CRNP [Family Provider] - in less than 1 week
Kim Garvin MD [Active] - in two to four weeks
Prescriptions:
New
spironolactone [Aldactone] 25 mg tablet
25 mg PO DAILY Qty: 30 0RF
hydrocortisone acetate [Anusol-HC] 25 mg suppository
25 mg LA HS PRN (Reason: hemorrhoid) Qty: 12 0RF
Continued
allopurinol 100 mg tablet
100 mg PO HS
simvastatin 20 mg tablet
20 mg PO DAILY
ferrous sulfate 325 mg (65 mg iron) Tablet
325 mg PO DAILY
acetaminophen 325 mg Tablet
650 mg PO Q6HPRN PRN (Reason: mild pain/fever>101)
carvedilol 3.125 mg Tablet
3.125 mg PO DAILY
cranberry 450 mg Tablet
450 mg PO DAILY
clonidine HCl 0.1 mg Tablet
0.1 mg PO HSPRN PRN (Reason: high blood pressure)
triamcinolone acetonide 0.1 % Cream
1 applic TOPICAL DAILYPRN PRN (Reason: leg itching)
pioglitazone 30 mg Tablet
30 mg PO DAILY
cholecalciferol (vitamin D3) [Vitamin D3] 25 mcg (1,000 unit) Tablet
25 mcg PO DAILY
furosemide 40 mg Tablet
40 mg PO DAILY
therapeutic multivitamin Tablet
1 tab PO DAILY
zinc sulfate 50 mg zinc (220 mg) Tablet
50 mg PO DAILY
diphenhydramine HCl [Benadryl] 25 mg Capsule
25 mg PO HSPRN PRN (Reason: itching)
omeprazole 20 mg Capsule,Delayed Release(Dr/Ec)
20 mg PO DAILY
omega-3 fatty acids-fish oil 684-1,200 mg Capsule,Delayed Release(Dr/Ec)
1 cap PO DAILY
Discharge Orders:
Discharge Patient (As Directed); Ordered 03/14/25
Ordered By: Sundar López
Discharge Date and Time
Print Language: [id number]
[2025-03-14 16:15] LABS: Body Fluid Second Tech DW
== END 2025-03-14 17:16 | disposition home or self-care (01) | DRG 378 ==
LOC: 4 WEST ACU 23:02
PROVIDERS: Emergency Medicine; Nurse Practitioner Adult Health; Nurse Practitioner Family; Physician Assistant; Radiology Vascular & Interventional Radiology; ADMITTING PHYSICIAN Internal Medicine; ATTENDING PHYSICIAN Internal Medicine; CONSULT PHYSICIAN Internal Medicine Gastroenterology; CONSULT PHYSICIAN Surgery; EMERGENCY PHYSICIAN Student in an Organized Health Care Education/Training Program; FAMILY PHYSICIAN Nurse Practitioner Primary Care
PROC: 0W9G3ZZ Drainage of Peritoneal Cavity, Percutaneous Approach (ICD-10-PCS; 2025-03-14)
DX: K62.5 Hemorrhage of anus and rectum (principal); D61.818 Other pancytopenia; I85.10 Secondary esophageal varices without bleeding; K76.6 Portal hypertension; R18.8 Other ascites; K64.4 Residual hemorrhoidal skin tags; K64.8 Other hemorrhoids; K74.60 Unspecified cirrhosis of liver; I10 Essential (primary) hypertension; E11.9 Type 2 diabetes mellitus without complications; E66.9 Obesity, unspecified; Z68.30 Body mass index [BMI] 30.0-30.9, adult; Z86.718 Personal history of other venous thrombosis and embolism
CPT/HCPCS: 49083; 74174; 80053; 82042; 82962; 84157; 85014; 85018; 85025; 85027; 85610; 85730; 86850; 86900; 86901; 87015; 87070; 87205; 89051; Q9967

== ENCOUNTER → 2025-03-21 09:46 | Outpatient (REF) | payer OTHER, SELFPAY ==
[2025-03-21 10:37] LABS: Urine Albumin 2+ (Neg - Trace); Urine Bilirubin Negative (Negative); Urine Character Slightly Cloudy (Clear); Urine Color Yellow; Urine Glucose Negative (Negative); Urine Ketone Negative (Negative); Urine Leukocyte 3+ (Negative); Urine Nitrite Negative (Negative); Urine Occult Blood 3+ (Negative); Urine Urobilinogen Negative (Neg - 1+); Urine pH 6.5 (5.0-9.0)
[2025-03-21 10:49] LABS: % Basophils 0.6 % (0-2); % Immature Granulocytes 0.6 % (0-0.5); % Lymphocytes 12.4 % (20.5-51.1); % Monocytes 13.4 % (1.7-9.3); Absolute Eosinophils 0.5 10^3/uL (0-0.7); Absolute Lymphocytes 0.6 10^3/uL (1.2-3.4); Absolute Monocytes 0.7 10^3/uL (0.1-0.6); Absolute Neutrophils 3.2 10^3/uL (1.4-6.5); Hematocrit 24.7 % (37.0-47.0); Hemoglobin 8.6 g/dL (12.0-16.0); Mean Corp Hgb Conc. 34.8 g/dL (33.0-37.0); Mean Corpuscular Hgb 31.3 pg (27.0-31.0); Mean Corpuscular Volume 89.8 fL (81.0-99.0); Mean Platelet Volume 10.5 fL (7.4-10.4); Nucleated Red Blood Cells % 0 %; Platelet Count 119 10^3/uL (130-400); Red Blood Cell Count 2.75 10^6/uL (4.20-5.40); Red Cell Dist. Width 17.8 % (11.5-14.5)
[2025-03-21 11:09] LABS: Urine Amorphous Seen; Urine Squamous Cell >30 /LPF (Few)
[2025-03-21 11:11] LABS: Urine Bacteria Many (Negative); Urine White Cell 50-60 /HPF (0-5)
[2025-03-21 11:59] LABS: ALT (SGPT) 18 U/L (0-35); AST (SGOT) 22 U/L (14-36); Alkaline Phosphatase 112 U/L (38-126); Blood Urea Nitrogen 47 mg/dl (7-17); Calcium 8.9 mg/dl (8.4-10.2); Carbon Dioxide 20 mmol/L (22-30); Chloride 112 mmol/L (98-107); Glucose 150 mg/dl (70-99); Potassium 3.8 mmol/L (3.5-5.1); Sodium 142 mmol/L (135-145); Total Protein 6.9 g/dl (6.3-8.2); eGFR 36.87
[2025-03-21 13:48] LABS: Glycohemoglobin (HgbA1c) 7.5 % (4.0-5.6)
== END ==
LOC: REG 09:46
PROVIDERS: ATTENDING PHYSICIAN Nurse Practitioner Primary Care
DX: K62.5 Hemorrhage of anus and rectum (principal); K74.69 Other cirrhosis of liver; I10 Essential (primary) hypertension; E11.9 Type 2 diabetes mellitus without complications
CPT/HCPCS: 36415; 80053; 81003; 81015; 83036; 85025